=== PATIENT | female | born 1960 | race Caucasian/White ===

== ENCOUNTER 2019-10-01 09:32 | Emergency (ER) | payer MEDICAID ==
[~2019-10-01] VITALS: Ht 165.1 cm; Wt 126.6 kg
[2019-10-01 09:43] VITALS: BP 173/63
[2019-10-01] MEDS ORDERED: cefTRIAXone SOD 1,000 MG VL IM ONE (11:00)
[2019-10-01] MEDS ORDERED: LIDOCAINE 1% HCL (LOCAL ANESTH.) INJ 20ML MDV IJ ONE (11:00)
== END 2019-10-01 11:47 | disposition home or self-care (01) ==
LOC: ER 09:32
DX: H66.91 Otitis media, unspecified, right ear (principal); R42 Dizziness and giddiness
CPT/HCPCS: 70480; 96372; 99284; J0696; J2001

== ENCOUNTER 2019-10-29 15:03 | Inpatient (IN) | payer MEDICAID ==
[~2019-10-29] VITALS: Ht 165.1 cm; Wt 134.2 kg
[2019-10-29] MEDS ORDERED: ONDANSETRON HCL 4 MG/2 ML VIAL IV ONE ×2 (16:00→19:00)
[2019-10-29] MEDS ORDERED: MORPHINE SULFATE 4 MG/ML SYR/VIAL IV ONE (16:00)
[2019-10-29 19:00] LABS: Basophils # (auto) 0.1 10 ^3/uL (0-0.2); Basophils % (auto) 0.6 % (0.0-2.0); Eosinophils # (auto) 0 10 ^3/uL (0-0.8); Eosinophils % (auto) 0.3 % (0.0-7.0); Hematocrit 41.2 % (36.0-46.0); Hemoglobin 13.5 g/dL (12.2-16.2); Lymphocytes # (auto) 1.7 10 ^3/uL (0.4-5.4); Lymphocytes % (auto) 11.3 % (10.0-50.0); Mean Corpuscular Hemoglobin 29.8 pg (28.0-32.0); Mean Corpuscular Hgb Conc. 32.8 g/dL (32.0-36.0); Mean Corpuscular Volume 90.8 fL (80.0-100.0); Monocytes # (auto) 0.6 10 ^3/uL (0-1.3); Monocytes % (auto) 4.1 % (0.0-12.0); Neutrophils # (auto) 12.6 10 ^3/uL (1.6-8.6); Neutrophils % (auto) 83.7 % (37.0-80.0); Platelet Count (auto) 256 10^3/uL (140-450); Red Blood Cells 4.54 10^6/uL (4.0-5.20); Red Cell Distribution Width 15.4 % (11.8-14.3)
[2019-10-29] MEDS ORDERED: HYDROmorphone HCL 2 MG/ML VL IV ONE (19:00)
[2019-10-29 19:17] LABS: Calcium 8.5 mg/dL (8.5-10.1)
[2019-10-29 19:20] LABS: BUN/Creatinine Ratio 14.7
[2019-10-29] MEDS ORDERED: PROMETHAZINE HCL 25 MG/ML 1ML IV ONE (19:45)
[2019-10-29] MEDS ORDERED: MORPHINE SULF INJ 2 MG/ML SYRINGE 1ML IV PRN (19:45)
[2019-10-29] MEDS ORDERED: NITROGLYCERIN 0.4 MG SL TAB SL PRN (19:45)
[2019-10-29] MEDS ORDERED: ONDANSETRON HCL 4 MG/2 ML VIAL IV PRN (19:45)
[2019-10-29] MEDS ORDERED: HYDROcodone-ACET 5/325MG TAB PO PRN (19:45)
[2019-10-29 21:45] VITALS: BP 151/56
[2019-10-29 21:50] VITALS: BP 151/56
[2019-10-29] MEDS ORDERED: ATORVASTATIN 20 MG TAB PO SCH (22:00)
[2019-10-29] MEDS: HYDROmorphone HCL 2 MG/ML VL IV PRN (22:04)
[2019-10-30] MEDS: HYDROmorphone HCL 2 MG/ML VL IV PRN ×7 (02:29→21:57)
--- NOTE | 2019-10-30 04:30 | NUR ---
hospitalist Vishal new orders received continuous garcia catheter for femur fracture and prolonged immobility
[2019-10-30 05:00] VITALS: BP 126/69
--- NOTE | 2019-10-30 05:55 | NUR ---
UA sent to lab
[2019-10-30 06:10] LABS: Urine Amorphous Crystal MOD /hpf (None Seen); Urine Bacteria FEW /hpf (None Seen); Urine Blood Negative /uL (Negative); Urine Hyaline Cast MANY /lpf (0 - 2); Urine Mucus FEW (None Seen); Urine Specific Gravity 1.029 (1.001-1.035); Urine WBC 3 /hpf (0 - 5)
--- NOTE | 2019-10-30 06:50 | NUR ---
pt resting in semi fowlers position. A&Ox4. pt denies pain at her left femur at this time, says she is in a good position. respirations are even and nonlabored on 2L nc. bed in lowest position, call light within reach.
[2019-10-30 09:00] VITALS: BP 99/68
[2019-10-30] MEDS: PANTOPRAZOLE 40 MG TAB PO SCH (09:28)
--- NOTE | 2019-10-30 12:07 | NUR ---
Assessment Pt is a 59 yr old alert and oriented female. Pt lives at home with her daughter, Kavita, who is her emergency contact at [phone]. Prior to admit, pt used no DME and was ambulatory and independent with ADL's. Pt recently moved into the area and is in the process of establishing a Primary Doctor still but declined needing assistance to do so. Pt has no AD and receives family financial support. Pt brought to the hospital after falling and stated that she "Shattered her leg." Pt stated that the doctor is working on transferring her to a higher level of care because they can't do the surgery here. Pt will need medical transportation for the transfer. Pt is understanding and agreeable to the transfer. Pt asked about getting DME upon d/c and SW informed patient that her d/c needs would be assessed by the attending hospital after the procedure is completed. No other needs assessed at this time. Addendum: 10/30/19 at 1214 by JEROMY ZUNIGA Amended: Links added.
[2019-10-30 13:00] VITALS: BP 135/61
[2019-10-30 15:16] LABS: Free T3 2.38 pg/mL (2.3-4.2); Free T4 (Free Thyroxine) 0.68 ng/dL (0.89-1.76)
--- NOTE | 2019-10-30 16:09 | NUR ---
I faxed higher level of care order/clinical information to [facility] and [facility].
--- NOTE | 2019-10-30 16:45 | NUR ---
I called [facility] and spoke with Lelia ([phone])-she provided me with [facility] authorization number [id number] and facility auth number is [id number]. I faxed higher level of care request to [facility] and [facility] ([facility]).
[2019-10-30 17:00] VITALS: BP 129/64
[2019-10-30] MEDS: CALCIUM W/VIT D (600MG/400IU) TAB PO SCH (18:09)
--- NOTE | 2019-10-30 19:20 | NUR ---
Opening Shift Note Assumed care of patient, awake and alert. No S/S of distress/SOB, patient states her pain is a 5/10 at the moment. Patient also states that she does not want to be moved in bed due to the pain. POC discussed and questions answered. Bed is locked in lowest position with side rails up x3 for safety, call light is within reach and patient is encouraged to call assistance PRN, will continue to monitor for changes Q1hr and PRN.
[2019-10-30] MEDS: DOCUSATE SOD 100 MG CAP PO SCH (21:57)
[2019-10-30 22:00] VITALS: BP 109/80
[2019-10-31] MEDS: HYDROmorphone HCL 2 MG/ML VL IV PRN ×7 (01:00→20:19)
--- NOTE | 2019-10-31 02:36 | NUR ---
patient refused being turned in bed
[2019-10-31 05:00] VITALS: BP 104/64
[2019-10-31 05:26] LABS: Basophils # (auto) 0.1 10 ^3/uL (0-0.2); Eosinophils # (auto) 0.1 10 ^3/uL (0-0.8); Eosinophils % (auto) 1.1 % (0.0-7.0); Hematocrit 33.6 % (36.0-46.0); Hemoglobin 11.1 g/dL (12.2-16.2); Lymphocytes # (auto) 2.2 10 ^3/uL (0.4-5.4); Lymphocytes % (auto) 16.8 % (10.0-50.0); Mean Corpuscular Hemoglobin 29.7 pg (28.0-32.0); Mean Corpuscular Hgb Conc. 33.1 g/dL (32.0-36.0); Mean Corpuscular Volume 89.6 fL (80.0-100.0); Monocytes # (auto) 1.1 10 ^3/uL (0-1.3); Neutrophils # (auto) 9.7 10 ^3/uL (1.6-8.6); Neutrophils % (auto) 73.1 % (37.0-80.0); Platelet Count (auto) 265 10^3/uL (140-450); Red Blood Cells 3.74 10^6/uL (4.0-5.20); White Blood Cell 13.3 10^3/uL (4.4-10.8)
[2019-10-31 05:47] LABS: Calcium 8.5 mg/dL (8.5-10.1); Potassium 4.6 mmol/L (3.5-5.1)
[2019-10-31 05:50] LABS: BUN/Creatinine Ratio 20.7
[2019-10-31] MEDS ORDERED: LEVOTHYROXINE SODIUM 25 MCG TAB PO SCH (07:00)
--- NOTE | 2019-10-31 07:15 | NUR ---
Opening Shift Note Assumed care of patient, awake and alert. No S/S of distress/SOB or pain. Instructed on POC and to call for assist PRN, will continue to monitor for changes Q1hr and PRN. Fall precautions in place per safety protocol.
[2019-10-31] MEDS: CALCIUM W/VIT D (600MG/400IU) TAB PO SCH ×2 (08:18→17:44)
[2019-10-31 09:00] VITALS: BP 92/54
[2019-10-31] MEDS ORDERED: SODIUM CHLORIDE 0.9% 1,000 ML IV SCH (09:45)
[2019-10-31] MEDS: DOCUSATE SOD 100 MG CAP PO SCH ×2 (10:32→21:59)
[2019-10-31] MEDS: PANTOPRAZOLE 40 MG TAB PO SCH (10:32)
--- NOTE | 2019-10-31 11:34 | NUR ---
I called the [facility] Transfer Center [phone] and spoke with Ruchi-provided her with contact information for Dr. Brennan and Dr. Sullivan as well as the nurse's station. Re-faxed transfer order/clinical packet to [phone].
--- NOTE | 2019-10-31 11:42 | NUR ---
I called the [facility] Transfer [facility] [phone] and spoke with Tracy, provided her with contact information for Dr. Sullivan and Dr. Brennan as well as the nurse's station. Re-faxed transfer order and clinical packet to [phone].
--- NOTE | 2019-10-31 11:47 | NUR ---
I called [facility] [phone] (spoke with Cynthia) and placed them on will-call pending transfer to higher level of care.
--- NOTE | 2019-10-31 12:03 | NUR ---
I called [facility] Transfer [facility] [phone] and spoke with Vfxelc-ox-gefut transfer order and clinical packet to [phone].
[2019-10-31 13:00] VITALS: BP 135/71
--- NOTE | 2019-10-31 15:22 | NUR ---
I received a call from Dede at the [facility]-letting me know that when they connected their ortho MD with Dr. Brennan, Dr. Brennan said patient was going to go to [place] and for [facility] to not look for a bed for this patient. I called [facility] Transfer Center [phone] and spoke with Hector-he said that they do have an accepting physician-Dr Silvino Vazquez, they are waiting for a bed.
[2019-10-31 15:56] LABS: Urine Bacteria MANY /hpf (None Seen); Urine Blood 1+ /uL (Negative); Urine Hyaline Cast FEW /lpf (0 - 2); Urine Mucus FEW (None Seen); Urine Specific Gravity 1.027 (1.001-1.035); Urine WBC 21 /hpf (0 - 5)
--- NOTE | 2019-10-31 16:26 | NUR ---
Faxed transfer back agreement to [facility] Transfer Center.
[2019-10-31 17:00] VITALS: BP 100/62
--- NOTE | 2019-10-31 17:00 | NUR ---
Patient refusing bed bath at this time.
--- NOTE | 2019-10-31 19:40 | NUR ---
Endorsed care to night RN Ruchi. Patient resting in bed, no distress, sob, or pain noted at this time.
--- NOTE | 2019-10-31 22:00 | NUR ---
[place] TRANSFER [place] SPOKE TO ALICIA AT [facility]. .PATIENT IS GOING TO UNIT 83[address], ROOM 10, BED 2. CALL REPORT TO [phone]. ACCEPTING PHYSICIAN DR. ALVES.
--- NOTE | 2019-10-31 22:23 | NUR ---
NOHEMI SPOKE TO JANNA AT [facility]. ETA OF 2 HOURS OR MORE GIVEN FOR BLS TRANSPORT. PATIENT GOING TO [facility].
[2019-10-31 22:24] VITALS: BP 111/67
--- NOTE | 2019-10-31 22:27 | NUR ---
FAMILY NOTIFIED OF TRANSFER PATIENT'S DAUGHTER JOE ([phone]) NOTIFIED OF PATIENT'S TRANSFER PER PATIENT'S REQUEST. UPDATED JOE WITH UNIT AND ROOM INFORMATION. ALL QUESTIONS AND CONCERNS ADDRESSED.
--- NOTE | 2019-10-31 23:22 | NUR ---
REPORT WAS GIVEN TO THE ACCEPTING NURSE FROM [place] AND WILL BE TRANSPORTED THERE BY [facility] ADMINISTRATOR OF HOME HEALTH
--- NOTE | 2019-11-01 00:09 | NUR ---
REPORT GIVEN TO Jasvir Valdez AT [facility]
[2019-11-01] MEDS: HYDROmorphone HCL 2 MG/ML VL IV PRN ×2 (00:21→00:24)
--- NOTE | 2019-11-01 02:02 | NUR ---
PT left at 135 am picked up by manager systems for [facility] in no distress and vitals are stable
== END 2019-11-01 01:35 | disposition short-term general hospital (02) | DRG 342 ==
LOC: EDBD 15:03 → ER 15:03 → OVERFLOW 15:04 → EAST 22:14
PROVIDERS: ADMIT Nurse Practitioner Acute Care; ATTEND Internal Medicine
DX: S82.042A Displaced comminuted fracture of left patella, initial encounter for closed fracture (principal); N17.0 Acute kidney failure with tubular necrosis; N18.3 Chronic kidney disease, stage 3 (moderate); E66.01 Morbid (severe) obesity due to excess calories; D72.829 Elevated white blood cell count, unspecified; E03.9 Hypothyroidism, unspecified; W18.39XA Other fall on same level, initial encounter; E78.5 Hyperlipidemia, unspecified; F17.210 Nicotine dependence, cigarettes, uncomplicated; Z90.49 Acquired absence of other specified parts of digestive tract; Z68.39 Body mass index [BMI] 39.0-39.9, adult; Z91.81 History of falling; Z98.51 Tubal ligation status; Y93.89 Activity, other specified; Y92.89 Other specified places as the place of occurrence of the external cause; Y99.8 Other external cause status
CPT/HCPCS: 36415; 71045; 73560; 73700; 80048; 80061; 81001; 84439; 84443; 84481; 85025; 87086; 87088; 87186; 96361; 96374; 96375; G0378; J2405

== ENCOUNTER 2024-09-09 22:53 | Inpatient (IN) | payer MEDICARE, MEDICAID ==
[~2024-09-09] VITALS: Ht 162.6 cm; Wt 87.8 kg
[2024-09-09] MEDS: SODIUM CHLORIDE 0.9% 1,000 ML IV ONE (23:15)
[2024-09-09] MEDS ORDERED: VANCOMYCIN HCL 1000 MG VL IV ONE (23:15)
[2024-09-09] MEDS ORDERED: levoFLOXacin 500 MG/100 ML PREMIX BAG IV ONE (23:15)
[2024-09-09 23:20] VITALS: PULSE 151; RESP 26; O2SAT 100
[2024-09-09 23:39] LABS: Base Excess -5.5 mmol/L (-2.0-3.0)
[2024-09-09] MEDS: ACETAMINOPHEN 325 MG TAB PO ONE (23:39)
[2024-09-09] MEDS: SODIUM CHLORIDE 0.9% 3,000 ML IVB ONE (23:48)
--- NOTE | 2024-09-09 23:59 | ED.PDOC ---
History of Present Illness HPI Comments 64 y/o F, with known reported history of uterine CA, HLD, hypothyroidism, and tobacco use, is BIBA for c/o ALOC, today. Per EMS report, patient's family called at 2202 after noticing the patient getting more progressively altered characterized by confusion following last time being reported normal at around 1700, this evening. Family commented on scene on patient c/o dizziness, nausea, bowel incontinence and urine retention, lately, prior to this evening's events and was found by EMS staff with a temperature of 100.5F, tachycardic, hypotensive, and a GCS of 13 and oriented to person only. All remaining vitals were noted to have been stable and within normal limits. En route, patient was placed in restraints to prevent her, accidentally, falling off, due to excessive movements, and given IV fluids following IV access placement. Upon arrival to ED, patient had a temperature of 101.3F, pulse rate of 152, respiratory rate of 30, blood pressure of 75/64, and a SpO2 of 88%RA and no additional reported associated symptoms. Further history cannot be obtained, due to patient's current condition and absence of family/veneer sander historians, at time of initial assessment. Chief Complaint: ALOC Time Seen by MD: 23:00 Primary Care Provider: NONE Reviewed Notes: Nurses Notes, Electrotherapist Notes, Medications, Allergies Allergies: Coded Allergies: NO KNOWN ALLERGIES (Unverified , 10/01/19) Home Meds Unable to Obtain Active Prescriptions or Reported Meds Information Source: Emergency Med Personnel Mode of Arrival: EMS Severity: Moderate Timing: Hours Duration: Since onset Prehospital treatment: 12 Lead EKG, Accucheck, Appliance Technician Review of Systems: Unable to obtain ROS, due to patient being altered and not answering questions appropriately Vital Signs Vital Signs Date Time Temp Pulse Resp B/P (MAP) Pulse Ox O2 Delivery O2 Flow Rate FiO2 09/10/24 04:21 70/23 09/10/24 04:18 122 09/10/24 04:00 14 100 09/10/24 03:00 104.0 104.0 09/09/24 23:20 Nasal Cannula* 5 40 Physical Exam General: Awake, alert and oriented. No acute distress. Skin: Skin in warm, dry and intact. Appropriate color for ethnicity. Nailbeds pink with no cyanosis. HEENT: The head is normocephalic and atraumatic. Conjunctivae are clear without exudates or hemorrhage. Sclera is non-icteric. EOM are intact. No signs of nystagmus. Eyelids are normal in appearance without swelling or lesions. Oral mucosa is pink and moist Neck: The neck is supple with normal range of motion. No JVD. Cardiac: Heart rate and rhythm are normal. No murmurs, gallops, or rubs are auscultated. Respiratory: No signs of respiratory distress. Lung sounds are clear in all lobes bilaterally without rales, ronchi, or wheezes. Abdominal: Abdomen is soft, non-tender without distention. Bowel sounds are present and normoactive in all four quadrants. Extremities: Upper and lower extremities are atraumatic in appearance without deformity or edema. Neurological: The patient is awake, alert and oriented to person only, but is confused and is only able to say her name. She follows commands. There is no facial asymmetry. Psychiatric: Appropriate mood and affect. Good judgement and insight. No visual or auditory hallucinations. Past Medical History PAST MEDICAL HISTORY: Cancer (uterine CA ), High Lipids, Thyroid (hypothyroidism ) Surgical History: BTL, Cholecystectomy, Tubal Ligation Surgical History (Other): Esophageal surgery) FOOD PROCESSOR History: No Pertinent FOOD PROCESSOR History Family History Family History: Reviewed,noncontributory to illness Social History Smoker: Cigarettes Alcohol: Denies ETOH Use Drugs: Denies Drug Use Lives In: Home Was a procedure done? Was a procedure done?: Yes Sedation Sedation?: No Other Procedure Procedure Peripheral left external jugular line placed under ultrasound-guided device ass istance 20 gauge angiocatheter placed Indication hypotension Anesthetic N/A Prep standard room and garment sterile preparation set Success procedure was successful, with patient tolerating it without complications Informed consent obtained: No Risks, benefits, and alternati: No Notes Initially, I wanted to attempt a central line in lieu or peripheral line but was unable to, due to patient being restless and continually moving. EKG EKG : Pulse Rate (adult): 144 [place]: Normal Cardiac Rhythm: ST Block: None Hypertrophy: None ST: Normal Comments low voltage Differential Dx Considerations may include: sepsis, UTI, encephalopathy, dehydration, electrolyte imbalance, viral syndrome, URI X-Ray, Labs, Meds, VS Vital Signs Date Time Temp Pulse Resp B/P (MAP) Pulse Ox O2 Delivery O2 Flow Rate FiO2 09/10/24 04:21 70/23 09/10/24 04:18 122 09/10/24 04:00 128 14 87/36 (53) 100 09/10/24 03:00 104.0 144 14 92/43 (59) 100 104.0 09/10/24 02:00 142 18 108/37 (60) 98 09/10/24 01:00 146 16 83/44 (57) 100 09/10/24 00:39 101.0 09/10/24 00:00 142 16 86/47 (60) 100 09/10/24 00:00 142 09/09/24 23:59 144 09/09/24 23:39 101.3 09/09/24 23:20 151 26 100 Nasal Cannula* 5 40 09/09/24 23:20 101.3 151 26 88/52 (64) 100 101.3 09/09/24 23:07 144 09/09/24 22:59 101.3 152 30 75/64 (68) 88 Lab Test 09/10/24 03:47 09/10/24 03:10 09/10/24 01:52 09/10/24 00:44 Range/Units Influenza Type A Antigen Negative Negative Influenza Type B Antigen Negative Negative SARS-CoV-2 Antigen (Rapid) Negative NEGATIVE Lactic Acid Level 7.5 *H 7.3 *H 0.4-2.0 mmol/L Ammonia < 10 L 11-32 umol/L Urine Color Light-yellow Yellow Urine Clarity Turbid H Clear Urine pH 5.5 5.0-9.0 Urine Specific [place] 1.011 1.001-1.035 Urine Protein 1+ H Negative Urine Ketones Trace Negative Urine Blood Negative Negative /uL Urine Nitrite Negative Negative Urine Bilirubin Negative Negative Urine Urobilinogen Normal Negative mg/dL Urine Leukocyte Esterase Negative Negative /uL Urine RBC 2 0 - 4 /hpf Urine WBC 5 0 - 5 /hpf Urine Squamous Epithelial Cells Few <5 /hpf Urine Amorphous Crystals Few None Seen /hpf Urine Bacteria Few H None Seen /hpf Urine Hyaline Casts Mod 0 - 2 /lpf Urine Mucus Few None Seen Urine Glucose Normal Normal mg/dL Urine Opiates Screen Neg NEGATIVE Urine Fentanyl Screen Neg NEGATIVE Urine Barbiturates Screen Neg NEGATIVE Urine Phencyclidine Screen Neg NEGATIVE Urine Amphetamines Screen Neg NEGATIVE Urine Benzodiazepines Screen Neg NEGATIVE Urine Cocaine Screen Neg NEGATIVE Urine Cannabinoids Screen Neg NEGATIVE White Blood Count 9.1 4.4-10.8 10^3/uL Red Blood Count 3.98 L 4.0-5.20 10^6/uL Hemoglobin 9.7 L 12.2-16.2 g/dL Hematocrit 32.4 L 36.0-46.0 % Mean Corpuscular Volume 81.6 80.0-100.0 fL Mean Corpuscular Hemoglobin 24.4 L 28.0-32.0 pg Mean Corpuscular Hemoglobin Concent 29.9 L 32.0-36.0 g/dL Red Cell Distribution Width 19.7 H 11.8-14.3 % Platelet Count 194 140-450 10^3/uL Mean Platelet Volume 7.8 6.9-10.8 fL Neutrophils (%) (Auto) 37.0-80.0 % Lymphocytes (%) (Auto) 10.0-50.0 % Monocytes (%) (Auto) 0.0-12.0 % Basophils (%) (Auto) 0.0-2.0 % Neutrophils # (Auto) 1.6-8.6 10 ^3/uL Lymphocytes # (Auto) 0.4-5.4 10 ^3/uL Monocytes # (Auto) 0-1.3 10 ^3/uL Differential Total Cells Counted 100.0 100 Neutrophils % (Manual) 82 H 37.0-80.0 Band Neutrophils % (Manual) 10 Lymphocytes % (Manual) 2 L 10.0-50.0 Monocytes % (Manual) 3 0-12 Eosinophils % (Manual) 0 0-7 Basophils % (Manual) 0 0.0-2.0 Metamyelocytes % (manual) 1 Myelocytes % (Manual) 2 Promyelocytes % (Manual) 0 Blast Cells % (Manual) 0 Nucleated Red Blood Cells 1.0 % Reactive Lymphocytes 0 Platelet Estimate Adequate Hypochromasia (manual) Slight Anisocytosis (manual) Slight Sodium Level 143 136-145 mmol/L Potassium Level 3.3 L 3.5-5.1 mmol/L Chloride Level 112 H 98-107 mmol/L Carbon Dioxide Level 17 L 20-31 mmol/L Anion Gap 14 5-15 Blood Urea Nitrogen 10 9-23 mg/dL Creatinine 1.56 H 0.550-1.02 mg/dL Glomerular Filtration Rate Calc 36 >90 mL/min BUN/Creatinine Ratio 6.4 L 10.0-20.0 Serum Glucose 111 H 74-106 mg/dL Calcium Level 7.9 L 8.7-10.4 mg/dL Magnesium Level 1.4 L 1.6-2.6 mg/dL Total Bilirubin 0.5 0.2-1.0 mg/dL Aspartate Amino Transferase (AST) 34 13-40 U/L Alanine Aminotransferase (ALT) 10 7-40 U/L Alkaline Phosphatase 89 46-116 U/L Troponin I High Sensitivity 29 </=34 ng/L Total Protein 5.5 L 5.7-8.2 g/dL Albumin 2.7 L 3.2-4.8 g/dL Plasma/Serum Blood Alcohol < 3.0 <10 mg/dL Test 09/09/24 23:34 Range/Units Blood Gas Specimen Type Arterial Blood Gas Sample Site Right radial Blood Gas Patient Temperature 37.0 Arterial Blood Date Drawn Arterial Blood pH 7.525 H 7.350-7.450 Arterial Blood Partial Pressure CO2 18.9 *L 32.0-45.0 mmHg Arterial Blood Partial Pressure O2 148.0 H 83.0-108.0 mmHg Arterial Blood HCO3 15.3 L 21.0-28.0 mmol/L Arterial Blood Oxygen Saturation 98.8 H 94.0-98.0 % Arterial Blood Base Excess -5.5 L -2.0-3.0 mmol/L Arterial Blood Oxyhemoglobin 97.8 94.0-98.0 % Arterial Blood Carboxyhemoglobin 0.3 L 0.5-1.5 % Arterial Blood Methemoglobin 0.7 0.0-1.5 % [place]aine Test Yes Blood Gas Total Hemoglobin 11.20 L 12.0-16.0 g/dL Blood Gas Modality Nasal cannula FiO2 % 32.0 Blood Gas Critical Value Read Back Yes Blood Gas Notified Whom Gaviota erwin md Blood Gas Notified Time [id number] Blood Gas Notified By Tal ventura Current Medications Medications (Trade) Dose Ordered Sig/Lou Route Start Time Stop Time Status Last Admin Acetaminophen (Tylenol Tablet) 650 mg ONCE ONCE PO 09/09/24 23:15 09/09/24 23:22 DC 09/09/24 23:39 Sodium Chloride 3,000 ml @ 1,000 mls/hr Q3H ONCE IVB 09/09/24 23:15 09/10/24 02:14 DC 09/09/24 23:48 Sodium Chloride 1,000 ml @ 130 mls/hr Q7H42M ONCE IV 09/09/24 23:15 09/10/24 06:56 09/09/24 23:15 Levofloxacin/ Dextrose 150 ml @ 100 mls/hr ONCE ONCE IV 09/10/24 00:00 09/10/24 01:29 DC 09/10/24 00:04 Vancomycin HCl 250 ml @ 250 mls/hr ONCE ONCE IV 09/10/24 01:45 09/10/24 02:44 DC 09/10/24 02:15 Midazolam HCl (Versed Injection) 2 mg ONCE ONCE IV 09/10/24 02:15 09/10/24 02:16 DC 09/10/24 02:23 Ondansetron HCl (Zofran) 4 mg ONCE ONCE IV 09/10/24 02:45 09/10/24 02:46 DC 09/10/24 02:42 Acetaminophen (Ofirmev) 1,000 mg [id number] PRN IV 09/10/24 03:30 09/10/24 03:31 DC 09/10/24 03:32 Norepinephrine Bitartrate 250 ml @ 3.75 mls/hr Q24H IV 09/10/24 04:15 09/10/24 04:21 Ketorolac Tromethamine (Toradol Injection) 30 mg ONCE ONCE IV 09/10/24 04:15 09/10/24 04:16 DC 09/10/24 04:37 Sodium Chloride 1,000 ml @ 1,000 mls/hr Q1H ONCE IV 09/10/24 05:30 09/10/24 06:29 09/10/24 05:30 Lorazepam (Ativan Inj) 1 mg ONCE ONCE IV 09/10/24 06:00 09/10/24 06:02 DC 09/10/24 06:10 [place] [id number] Ph: [phone] DIAGNOSTIC IMAGING Diagnostic Imaging Report : [id number] Signed PATIENT: JOSLYN ARMSTRONG ACCT: [id number] UNIT: [id number] : 1960 LOC: ER ROOM / BED: / AGE / SEX: 64 / F ADM STATUS: REG ER SERVICE 7 ORDERING PHYSICIAN: MILTON ERWIN MD PROCEDURE(s): HWOCT - HEAD WITHOUT CONTRAST REASON: ams ORDER NUMBER(s): [id number], ACCESSION NUMBER(s): [id number] Examination: HWOCT CLINICAL INDICATION: ams COMPARISON: None. CONTRAST USED: Intravenous. TECHNIQUE: The examination was performed obtaining 5 mm slices without contrast. Multiplanar reconstructions were obtained. CT scan done according to ALARA (As Low As Reasonably Achievable). FINDINGS: SUPRATENTORIAL BRAIN: Motion artefacts are seen compromising image quality limiting evaluation. Cerebral Hemispheres: There is no midline shift or mass effect, intra or extra- axial fluid collections or hemorrhage. Periventricular White Matter/Basal Ganglia: No abnormal areas of altered attenuation within the periventricular white matter or basal ganglia. POSTERIOR FOSSA: The brainstem is normal and the visualized cerebellar hemispheres are unremarkable. VENTRICULAR SYSTEM: Generalized prominence of the ventricular system, cisterns, sulcal spaces and cerebellar foliae is seen, suggestive of age-related cortico- cerebral and cerebellar atrophy. There is no evidence of hydrocephalus or transependymal flow of cerebrospinal fluid. SKULL BASE AND PARASELLAR REGION: The skull base is normal with no parasellar masses or abnormalities identified. CALVARIUM AND SCALP REGION: No abnormality is seen. PARANASAL SINUSES: No significant inflammatory changes are identified in the paranasal sinuses. IMPRESSION: 1. Mild age-related cortico-cerebral and cerebellar atrophy. 2. No acute infarct or space occupying lesion is seen. 3. No intracranial hemorrhage or calvarial fracture. 4. Suggest MRI brain correlation if clinically deemed necessary. Electronically Signed 09/10/2024 03:37 Leonel Tran ATED BY: MARC HERNADEZ MD DICTATED DATE/TIME: 09/10/24336 SIGNED BY: MARC HERNADEZ MD SIGNED DATE/TIME: 09/10/24336 CC: [place] [address] Ph: [phone] DIAGNOSTIC IMAGING Diagnostic Imaging Report : [id number] Signed PATIENT: JOSLYN ARMSTRONG ACCT: [id number] UNIT: [id number] : 1960 LOC: ER ROOM / BED: / AGE / SEX: 64 / F ADM STATUS: REG ER SERVICE 0248 ORDERING PHYSICIAN: MILTON ERWIN MD PROCEDURE(s): CTCAP - CHST AB PEL WO CON-NO IV/ORAL REASON: Sepsis ORDER NUMBER(s): [id number], ACCESSION NUMBER(s): [id number] Examination: CTCAP CLINICAL INDICATION: Sepsis. COMPARISON: None. CONTRAST USED: None. TECHNIQUE: A plain CT study of the chest abdomen and pelvis is performed after administration of intravenous contrast medium. The examination was performed with 5 mm thin slices. Multiplanar reconstructions were obtained. CT scan done according to ALARA (As Low As Reasonably Achievable). FINDINGS: Lower neck and thyroid: Unremarkable Lungs and pleura: The pulmonary parenchyma does not show any significant abnormality. No pulmonary nodules are detected. Mediastinum and great vessels: The trachea and the mainstem bronchi are normal. No significant mediastinal lymphadenopathy is detected. The mediastinal vasculature appears normal. Pleural spaces are clear. Heart is normal in size. No pericardial effusion. Small sliding hiatus hernia is seen. Chest wall and Axillae: Unremarkable. CT ABDOMEN: Liver: The liver is normal in size. Small calcified granuloma is seen in segment of liver. The portal venous radicles are normal. There is no intrahepatic biliary radicle dilatation. Gallbladder: The gallbladder is not visualized (post operative status). Common bile duct stent is seen in place. No pneumobilia. Pancreas: The pancreas is normal in size and shape. No focal lesion is seen within. The peripancreatic fat-planes are normal. Spleen: The spleen is normal in size and does not show any focal abnormality. Retroperitoneum: Both adrenal glands are normal in size and morphology. There is no significant retroperitoneal lymphadenopathy. The kidneys are normal in size with no hydronephrosis. Non-obstructive calculus measuring 2 mm is seen in the upper pole of right kidney. Probable prominent left renal pelvis. Parapelvic cyst is seen. Suggest CT urography correlation. Vessels: Aorta, IVC and the mesenteric vessels appear normal. Stomach and bowel: The bowel loops are unremarkable. There is no ascites. Skeletal system: Degenerative changes are seen involving the spine in the form of marginal osteophytes. Grade I anterolisthesis of L3 on L4 vertebra is seen. CT PELVIS: Appendix: The appendix is unremarkable in appearance. Colon: The ascending, transverse, descending, sigmoid colon and rectum are unremarkable. Bladder: The urinary bladder is empty with Foleys catheter seen in the lumen. Uterus and ovaries: Post-hysterectomy status. No adnexal pathology. No abnormal fluid collection is seen. No pelvic lymphadenopathy is identified. IMPRESSION: 1. The pulmonary parenchyma does not show any significant abnormality. 2. Non-obstructive calculus measuring 2 mm is seen in the upper pole of right kidney. 3. Probable prominent left renal pelvis. Parapelvic cyst is seen. Suggest CT urography correlation. 4. No abdominal mass or adenopathy 5. No ascites. 6. No free air or inflammatory changes. 7. Additional chronic and/or ancillary findings as detailed above. 8. Suggest clinical correlation and follow-up as clinically deemed necessary. Electronically Signed 09/10/2024 04:10 Leonel Tran ATED BY: MARC HERNADEZ MD DICTATED DATE/TIME: 09/10/24409 SIGNED BY: MARC HERNADEZ MD SIGNED DATE/TIME: 09/10/24409 CC: [place] [address] Ph: [phone] DIAGNOSTIC IMAGING Diagnostic Imaging Report : [id number] Signed PATIENT: JOSLYN ARMSTRONG ACCT: [id number] UNIT: [id number] : 1960 LOC: ER ROOM / BED: / AGE / SEX: 64 / F ADM STATUS: REG ER SERVICE 7 ORDERING PHYSICIAN: MILTON ERWIN MD PROCEDURE(s): CXR1 - CHEST XRAY 1 VIEW REASON: septic ORDER NUMBER(s): [id number], ACCESSION NUMBER(s): [id number] Examination: CXR1 Clinical Indication: septic Comparison: None. Technique: Frontal radiograph of the chest was obtained. Findings: Limited evaluation, as the patient is in rotation and due to patients body habitus. Inhomogeneous radiopacities in right mid and both lower lungs, suggestive of patchy consolidations. Blunting of the bilateral costophrenic angles, suggestive of bilateral pleural effusions. There is no pneumothorax. Mild cardiomegaly. Ectatic thoracic aorta. Mild superior mediastinal widening. No acute osseous abnormality is seen. Impression: 1. Limited evaluation, as the patient is in rotation and due to patients body habitus. 2. Patchy consolidations in the right mid and both lower lungs. 3. Bilateral pleural effusions. Mild cardiomegaly. 4. Mild superior mediastinal widening. Advised further evaluation with CT chest without contrast. Electronically Signed 09/10/2024 03:37 Leonel Tran ATED BY: MARC HERNADEZ MD DICTATED DATE/TIME: 09/10/24336 SIGNED BY: MARC HERNADEZ MD SIGNED DATE/TIME: 09/10/24336 CC: Time of 1ST Reevaluation: 23:30 Reevaluation 1ST: Unchanged Patient Education/Counseling: Other (patient is altered ) Family Education/Counseling: No Family Present Departure 1 Departure Time of Disposition: 05:20 Impression: Primary Impression: Altered mental status Additional Impressions: Sepsis Metabolic encephalopathy Acute renal failure Hypovolemic shock e-Prescriptions Unable to Obtain Active Prescriptions or Reported Meds Comments 64 year old female presented with one day of AMS. Per family at bedside patient has been eating less over the past week. In the ED patient found to have possible pneumonia/ acute renal failure. She is awake and alert however continues to be significantly confused. IVF, antibiotics and pressors initiated. Patient admitted for further treatment, observation and evaluation. Extensive evaluation was performed in attempt to identify or rule out: (See differential diagnosis section) The following tests were ordered, and results were reviewed by me: (See diagnostic results section) The following test were independently interpreted by me: N/A I reviewed and agreed with the following test results read by other providers: N/A I reviewed the following notes from the pt's past medical encounters: (None available at this time) Additional information was gathered from interviewing the following independent historians: N/A Discussion of management or test interpretation with external physician/other qualified health hemodialysis patient care specialist: N/A Addressed [ ]one or more chronic illnesses with severe exacerbation, progression, or side effects of treatment: [ ]an acute or chronic illness that poses a threat to life or bodily function: [ ] Decision regarding hospitalization or escalation of hospital level of care: Risk and benefits of admission for further treatment of patient's condition was considered. Due to patient's current clinical condition, high risk of decline and poor outcome if discharged and need for further inpatient management and monitoring, patient will be admitted to the hospital. Drug therapy requiring intensive monitoring for toxicity: N/A Parenteral controlled substances: N/A Decision regarding elective major surgery with identified patient or procedure risk factors: N/A Decision regarding emergency major surgery: N/A Decision not to resuscitate or to de-escalate care because of poor prognosis: N/A Diagnosis or treatment significantly limited by social determinants of health: N/A Decision regarding hospitalization or escalation of hospital level of care: Risks and benefits of admission for further treatment of patient's condition was considered however due to patient's stable condition patient will be discharged to follow up closely or return to care for worsening of condition or inability to follow up. Critical Care Note Critical Care Time?: No Stability Stability form required: No Heart Score Heart Score: Heart Score Response (Comments) Value History N/A 0 EKG N/A 0 Age N/A 0 Risk Factors N/A 0 Troponin N/A 0 Total 0 I personally scribed for MILTON ERWIN MD ([email or web address]) on 09/09/24 at 23:59. Electronically submitted by Kev Alvarez ([email or web address]). I personally scribed for MILTON ERWIN MD ([email or web address]) on 09/10/24 at 05:32. Electronically submitted by Kev Alvarez ([email or web address]). I personally scribed for MILTON ERWIN MD ([email or web address]) on 09/10/24 at 05:37. Electronically submitted by Kev Alvarez ([email or web address]). MILTON ERWIN MD Sep 09, 2024 23:59
[2024-09-10] VITALS (17 sets, daily range): BP systolic 82–115; BP diastolic 40–57; PULSE 94–113; RESP 18–23; TEMP 97; O2SAT 0–100
[2024-09-10] MEDS ORDERED: VANCOMYCIN PER PHARMACY 0 MG IV SCH
[2024-09-10] MEDS: levoFLOXacin 750MG 150 ML IV ONE (00:04)
[2024-09-10 01:05] LABS: Hematocrit 32.4 % (36.0-46.0); Hemoglobin 9.7 g/dL (12.2-16.2); Platelet Count (auto) 194 10^3/uL (140-450); White Blood Cell 9.1 10^3/uL (4.4-10.8)
[2024-09-10 01:07] LABS: Mean Corpuscular Hemoglobin 24.4 pg (28.0-32.0); Mean Corpuscular Hgb Conc. 29.9 g/dL (32.0-36.0); Mean Corpuscular Volume 81.6 fL (80.0-100.0); Red Blood Cells 3.98 10^6/uL (4.0-5.20); Red Cell Distribution Width 19.7 % (11.8-14.3)
[2024-09-10 01:08] LABS: Basophils % (manual) 0 (0.0-2.0); Blast Cells 0; Eosinophils % (manual) 0 (0-7); Promyelocytes % 0; Reactive Lymphocytes 0
[2024-09-10 01:18] LABS: Alanine Aminotransferase 10 U/L (7-40); Alkaline Phosphatase 89 U/L (46-116); Anion Gap 14 (5-15); Aspartate Aminotransferase 34 U/L (13-40); BUN/Creatinine Ratio 6.4 (10.0-20.0); Blood Urea Nitrogen 10 mg/dL (9-23); Sodium 143 mmol/L (136-145)
[2024-09-10 01:19] LABS: Albumin 2.7 g/dL (3.2-4.8); Bilirubin, Total 0.5 mg/dL (0.2-1.0); Calcium 7.9 mg/dL (8.7-10.4); Carbon Dioxide 17 mmol/L (20-31); Chloride 112 mmol/L (98-107); Glucose 111 mg/dL (74-106); Magnesium 1.4 mg/dL (1.6-2.6); Potassium 3.3 mmol/L (3.5-5.1); Total Protein 5.5 g/dL (5.7-8.2)
[2024-09-10 01:22] LABS: Lactic Acid w/Reflex 7.3 mmol/L (0.4-2.0)
[2024-09-10 01:26] LABS: Anisocytosis Slight; Band Neutrophils % (manual) 10; Hypochromia Slight; Lymphocytes % (manual) 2 (10.0-50.0); Metamyelocytes % 1; Monocytes % (manual) 3 (0-12); Myelocytes % 2; Platelet Estimate Adequate
[2024-09-10 01:47] LABS: Blood Alcohol < 3.0 mg/dL (<10)
[2024-09-10] MEDS: VANCOMYCIN 1GM/250ML KIT 250 ML IV ONE (02:15)
[2024-09-10] MEDS: MIDAZOLAM HCL 2MG/2ML 2ml VIAL (1mg/ml) IV ONE (02:23)
[2024-09-10 02:25] LABS: Opiate Scree,Urine Neg (NEGATIVE)
[2024-09-10] MEDS: POTASSIUM CHL 20MEQ/100ML 100 ML IV ONE (02:30)
[2024-09-10 02:41] LABS: Urine Amorphous Crystal FEW /hpf (None Seen); Urine Bacteria FEW /hpf (None Seen); Urine Blood Negative /uL (Negative); Urine Clarity Turbid (Clear); Urine Color Light-Yellow (Yellow); Urine Hyaline Cast MOD /lpf (0 - 2); Urine Mucus FEW (None Seen); Urine Protein, UAD 1+ (Negative); Urine Specific Gravity 1.011 (1.001-1.035); Urine Squamous Epithelial Cell FEW /hpf (<5); Urine Urobilinogen Normal (Negative); Urine WBC 5 /hpf (0 - 5); Urine pH 5.5 (5.0-9.0)
[2024-09-10] MEDS: ONDANSETRON HCL 4 MG/2 ML VIAL IV ONE (02:42)
[2024-09-10 02:45] LABS: Amphetamine Screen, Urine Neg (NEGATIVE); Barbiturate Scree,Urine Neg (NEGATIVE); Benzodiazephine Screen, Urine Neg (NEGATIVE); Cannabinoid Screen, Urine Neg (NEGATIVE); Cocaine Screen, Urine Neg (NEGATIVE); Phencyclidine Screen, Urine Neg (NEGATIVE)
[2024-09-10] MEDS: ACETAMINOPHEN IV 1000 MG/100ML (10MG/ML) IV PRN (03:32)
--- NOTE | 2024-09-10 03:37 | DVH ---
Examination: CXR1 Clinical Indication: septic Comparison: None. Technique: Frontal radiograph of the chest was obtained. Findings: Limited evaluation, as the patient is in rotation and due to patients body habitus. Inhomogeneous radiopacities in right mid and both lower lungs, suggestive of patchy consolidations. Blunting of the bilateral costophrenic angles, suggestive of bilateral pleural effusions. There is no pneumothorax. Mild cardiomegaly. Ectatic thoracic aorta. Mild superior mediastinal widening. No acute osseous abnormality is seen. Impression: 1. Limited evaluation, as the patient is in rotation and due to patients body habitus. 2. Patchy consolidations in the right mid and both lower lungs. 3. Bilateral pleural effusions. Mild cardiomegaly. 4. Mild superior mediastinal widening. Advised further evaluation with CT chest without contrast. Electronically Signed 09/10/2024 03:37 Leonel Tran
--- NOTE | 2024-09-10 03:38 | DVH ---
Examination: HWOCT CLINICAL INDICATION: ams COMPARISON: None. CONTRAST USED: Intravenous. TECHNIQUE: The examination was performed obtaining 5 mm slices without contrast. Multiplanar recons tructions were obtained. CT scan done according to ALARA (As Low As Reasonably Achievable). FINDINGS: SUPRATENTORIAL BRAIN: Motion artefacts are seen compromising image quality limiting evaluation. Cerebral Hemispheres: There is no midline shift or mass effect, intra or extra-axial fluid collectio ns or hemorrhage. Periventricular White Matter/Basal Ganglia: No abnormal areas of altered attenuation within the nadia ventricular white matter or basal ganglia. POSTERIOR FOSSA: The brainstem is normal and the visualized cerebellar hemispheres are unremarkable. VENTRICULAR SYSTEM: Generalized prominence of the ventricular system, cisterns, sulcal spaces and ce rebellar foliae is seen, suggestive of age-related cortico-cerebral and cerebellar atrophy. There is no evidence of hydrocephalus or transependymal flow of cerebrospinal fluid. SKULL BASE AND PARASELLAR REGION: The skull base is normal with no parasellar masses or abnormalitie s identified. CALVARIUM AND SCALP REGION: No abnormality is seen. PARANASAL SINUSES: No significant inflammatory changes are identified in the paranasal sinuses. IMPRESSION: 1. Mild age-related cortico-cerebral and cerebellar atrophy. 2. No acute infarct or space occupying lesion is seen. 3. No intracranial hemorrhage or calvarial fracture. 4. Suggest MRI brain correlation if clinically deemed necessary. Electronically Signed 09/10/2024 03:37 Leonel Tran
--- NOTE | 2024-09-10 04:10 | DVH ---
Examination: CTCAP CLINICAL INDICATION: Sepsis. COMPARISON: None. CONTRAST USED: None. TECHNIQUE: A plain CT study of the chest abdomen and pelvis is performed after administration of int ravenous contrast medium. The examination was performed with 5 mm thin slices. Multiplanar reconstru ctions were obtained. CT scan done according to ALARA (As Low As Reasonably Achievable). FINDINGS: Lower neck and thyroid: Unremarkable Lungs and pleura: The pulmonary parenchyma does not show any significant abnormality. No pulmonary nodules are detected. Mediastinum and great vessels: The trachea and the mainstem bronchi are normal. No significant media stinal lymphadenopathy is detected. The mediastinal vasculature appears normal. Pleural spaces are cl ear. Heart is normal in size. No pericardial effusion. Small sliding hiatus hernia is seen. Chest wall and Axillae: Unremarkable. CT ABDOMEN: Liver: The liver is normal in size. Small calcified granuloma is seen in segment of liver. The portal venous radicles are normal. There is no intrahepatic biliary radicle dilatation. Gallbladder: The gallbladder is not visualized (post operative status). Common bile duct stent is se en in place. No pneumobilia. Pancreas: The pancreas is normal in size and shape. No focal lesion is seen within. The peripancre atic fat-planes are normal. Spleen: The spleen is normal in size and does not show any focal abnormality. Retroperitoneum: Both adrenal glands are normal in size and morphology. There is no significant retr operitoneal lymphadenopathy. The kidneys are normal in size with no hydronephrosis. Non-obstructive c alculus measuring 2 mm is seen in the upper pole of right kidney. Probable prominent left renal pelvi s. Parapelvic cyst is seen. Suggest CT urography correlation. Vessels: Aorta, IVC and the mesenteric vessels appear normal. Stomach and bowel: The bowel loops are unremarkable. There is no ascites. Skeletal system: Degenerative changes are seen involving the spine in the form of marginal osteophyt es. Grade I anterolisthesis of L3 on L4 vertebra is seen. CT PELVIS: Appendix: The appendix is unremarkable in appearance. Colon: The ascending, transverse, descending, sigmoid colon and rectum are unremarkable. Bladder: The urinary bladder is empty with Foleys catheter seen in the lumen. Uterus and ovaries: Post-hysterectomy status. No adnexal pathology. No abnormal fluid collection is s een. No pelvic lymphadenopathy is identified. IMPRESSION: 1. The pulmonary parenchyma does not show any significant abnormality. 2. Non-obstructive calculus measuring 2 mm is seen in the upper pole of right kidney. 3. Probable prominent left renal pelvis. Parapelvic cyst is seen. Suggest CT urography correlation. 4. No abdominal mass or adenopathy 5. No ascites. 6. No free air or inflammatory changes. 7. Additional chronic and/or ancillary findings as detailed above. 8. Suggest clinical correlation and follow-up as clinically deemed necessary. Electronically Signed 09/10/2024 04:10 Leonel Tran
[2024-09-10] MEDS: LORazepam 2MG/ML-1ML VIAL IV ONE ×2 (04:15→06:10)
[2024-09-10] MEDS: NOREPINEPHRINE 8 MG/250ML KIT 250 ML IV SCH (04:21)
--- NOTE | 2024-09-10 04:29 | ECG ---
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
[2024-09-10] MEDS: KETOROLAC TROMETH 30 MG/ML 1ML VIAL IV ONE (04:37)
[2024-09-10] MEDS: SODIUM CHLORIDE 0.9% 1,000 ML IV ONE (05:30)
[2024-09-10 06:05] LABS: COVID19 ANTIGEN SOFIA FIA NEGATIVE (NEGATIVE); Rapid Influenza A Negative (Negative); Rapid Influenza B Negative (Negative)
[2024-09-10 07:27] LABS: Sodium 145 mmol/L (136-145)
[2024-09-10 07:28] LABS: Anion Gap 17 (5-15)
[2024-09-10 07:29] LABS: Calcium 7.6 mg/dL (8.7-10.4); Carbon Dioxide 14 mmol/L (20-31); Chloride 114 mmol/L (98-107); Potassium 3.4 mmol/L (3.5-5.1)
[2024-09-10 07:34] LABS: BUN/Creatinine Ratio 6.2 (10.0-20.0); Blood Urea Nitrogen 11 mg/dL (9-23)
[2024-09-10 07:39] LABS: Glucose 113 mg/dL (74-106)
[2024-09-10] MEDS ORDERED: DOCUSATE SOD 100 MG CAP PO PRN (10:00)
--- NOTE | 2024-09-10 10:20 | DVHHP2 ---
History of Present Illness Reason for Visit: Sepsis, unspecified organism History of Present Illness The patient is a 64-year-old female with past medical history of uterine cancer, hyperlipidemia, and thyroid disease who presented to [facility] ED for evaluation of altered level of consciousness. As reported by EMS, family called regarding patient's states of mental status characterized by confusion, generalized weakness, dizziness, nausea, bowel incontinence, urinary retention, getting worse that prompted this visit. Patient was seen and evaluated in the ED, laboratory data shows WBC 9.1, hemoglobin 9.7, hematocrit 32.4, platelets 194, sodium 145, potassium 3.4, BUN 11, creatinine 1.78, GFR 31, glucose 113, anion gap 17, bicarbonate 15.3, calcium 7.6, lactic acid 7.5 trending down to 7.1, troponin 29, albumin 2.7, protein 5.5, blood pressure 75/64 trending up to 96/40, heart rate 152 trending down to 104, temperature 101.3 F trending down to 98.7 F, O2 saturation 96% on oxygen. Chest x-ray revealing patchy consolidations in the right mid and both lower lungs, bilateral pleural effusions, mild cardiomegaly. Patient was started on IV Levophed, please see medication orders section in the computer. On my assessment, patient denies chest pain, no diaphoresis, no headache, currently on oxygen, no abdominal pain, no diarrhea, no nausea, no vomiting, no fever, no chills. Patient was admitted for further evaluation and medical management. Past Medical History Uterine cancer, High Lipids, hypothyroidism Past Surgical History BTL, Cholecystectomy, Tubal Ligation, Esophageal surgery Family History Reviewed, noncontributory to the management of this case. Past Social History Patient lives at home, smokes cigarettes, denies alcohol illicit drugs abuse. Review of Systems Constitutional: Yes: Weakness; No: Fever, Chills, Sweats, Malaise, Other Eyes: No: Pain, Vision change, Conjunctivae inflammation, Eyelid inflammation, Other, Redness ENT: No: Ear pain, Ear discharge, Nose pain, Nose discharge, Nose congestion, Mouth pain, Mouth swelling, Throat pain, Throat swelling, Other Respiratory: Shortness of breath; No: Cough, Dry, SOB with excertion, Wheezing, Hemoptysis, Pleuritic Pain, Sputum, Wheezing, Other Cardiovascular: No: Chest Pain, Palpitations, Orthopnea, Paroxysmal Noc. Dyspnea, Edema, Lt Headedness, Other Gastrointestinal: No: Nausea, Vomiting, Abdominal Pain, Diarrhea, Constipation, Melena, Hematochezia, Other Genitourinary: No Dysuria, No Frequency, No Incontinence, No Hematuria, No Retention, No Other Musculoskeletal: No: other, neck pain, shoulder pain, arm pain, back pain, hand pain, leg pain, foot pain Skin: No: Rash, Lesions, Jaundice, Bruising, Other Neurological: Weakness; No: Numbness, Incoordination, Change in speech, Confusion, Seizures, Other Allergies: Coded Allergies: NO KNOWN ALLERGIES (Unverified , 10/01/19) Medications Current Medications Medications Dose Ordered Sig/Lou Route Start Time Stop Time Status Last Admin Dose Admin Vancomycin HCl 0 ml @ 0 mls/hr UD IV 09/10/24 00:00 UNV Norepinephrine Bitartrate 250 ml @ 3.75 mls/hr Q24H IV 09/10/24 04:15 09/10/24 04:21 3.75 MLS/HR Azithromycin 250 ml @ 125 mls/hr DAILY IV 09/10/24 10:00 Sodium Chloride 10 ml Q8HR IV 09/10/24 14:00 Acetaminophen/ Hydrocodone Bitart 1 tab Q4HP PRN PO 09/10/24 10:00 Ondansetron HCl 4 mg Q4HP PRN IV 09/10/24 10:00 Docusate Sodium 100 mg BIDPRN PRN PO 09/10/24 10:00 Acetaminophen 650 mg Q6HP PRN PO 09/10/24 10:00 Exam Vital Signs Vital Signs Date Time Temp Pulse Resp B/P (MAP) Pulse Ox O2 Delivery O2 Flow Rate FiO2 09/10/24 10:00 95 15 99/48 (65) 100 09/10/24 09:51 Room Air* 0 21 09/10/24 07:00 98.7 98.7 General Appearance: Alert, Oriented X3, Cooperative HEENT: Atraumatic, PERRLA, EOMI, Mucous membr. moist/pink Respiratory: Normal air movement, Other (Diminished breath sounds) Cardiovascular: Regular rate, Normal S1, Normal S2, No murmurs Abdominal: Normal bowel sounds, Soft, No tenderness, No hepatospenomegaly, No masses Extremities: No clubbing, No cyanosis, No edema, Normal pulses, No tenderness/swelling Skin: No rashes, No breakdown, No significant lesion Neuro: Normal speech, Normal tone, Sensation intact, Cranial nerves 3-12 NL, Reflexes 2+, Other (Generalized weakness) Psych/Mental Status: Mental status NL, Mood NL Labs/Xrays Labs Test 09/10/24 09:18 09/10/24 03:47 09/10/24 03:13 09/10/24 03:10 Range/Units POC Glucose 120 H 70-106 mg/dl Influenza Type A Antigen Negative Negative Influenza Type B Antigen Negative Negative SARS-CoV-2 Antigen (Rapid) Negative NEGATIVE Sodium Level 145 136-145 mmol/L Potassium Level 3.4 L 3.5-5.1 mmol/L Chloride Level 114 H 98-107 mmol/L Carbon Dioxide Level 14 L 20-31 mmol/L Anion Gap 17 H 5-15 Blood Urea Nitrogen 11 9-23 mg/dL Creatinine 1.78 H 0.550-1.02 mg/dL Glomerular Filtration Rate Calc 31 >90 mL/min BUN/Creatinine Ratio 6.2 L 10.0-20.0 Serum Glucose 113 H 74-106 mg/dL Lactic Acid Level 7.5 *H 0.4-2.0 mmol/L Calcium Level 7.6 L 8.7-10.4 mg/dL Ammonia < 10 L 11-32 umol/L Test 09/10/24 01:52 09/10/24 00:44 09/09/24 23:34 Range/Units Urine Color Light-yellow Yellow Urine Clarity Turbid H Clear Urine pH 5.5 5.0-9.0 Urine Specific Ethel 1.011 1.001-1.035 Urine Protein 1+ H Negative Urine Ketones Trace Negative Urine Blood Negative Negative /uL Urine Nitrite Negative Negative Urine Bilirubin Negative Negative Urine Urobilinogen Normal Negative mg/dL Urine Leukocyte Esterase Negative Negative /uL Urine RBC 2 0 - 4 /hpf Urine WBC 5 0 - 5 /hpf Urine Squamous Epithelial Cells Few <5 /hpf Urine Amorphous Crystals Few None Seen /hpf Urine Bacteria Few H None Seen /hpf Urine Hyaline Casts Mod 0 - 2 /lpf Urine Mucus Few None Seen Urine Glucose Normal Normal mg/dL Urine Opiates Screen Neg NEGATIVE Urine Fentanyl Screen Neg NEGATIVE Urine Barbiturates Screen Neg NEGATIVE Urine Phencyclidine Screen Neg NEGATIVE Urine Amphetamines Screen Neg NEGATIVE Urine Benzodiazepines Screen Neg NEGATIVE Urine Cocaine Screen Neg NEGATIVE Urine Cannabinoids Screen Neg NEGATIVE White Blood Count 9.1 4.4-10.8 10^3/uL Red Blood Count 3.98 L 4.0-5.20 10^6/uL Hemoglobin 9.7 L 12.2-16.2 g/dL Hematocrit 32.4 L 36.0-46.0 % Mean Corpuscular Volume 81.6 80.0-100.0 fL Mean Corpuscular Hemoglobin 24.4 L 28.0-32.0 pg Mean Corpuscular Hemoglobin Concent 29.9 L 32.0-36.0 g/dL Red Cell Distribution Width 19.7 H 11.8-14.3 % Platelet Count 194 140-450 10^3/uL Mean Platelet Volume 7.8 6.9-10.8 fL Neutrophils (%) (Auto) 37.0-80.0 % Lymphocytes (%) (Auto) 10.0-50.0 % Monocytes (%) (Auto) 0.0-12.0 % Basophils (%) (Auto) 0.0-2.0 % Neutrophils # (Auto) 1.6-8.6 10 ^3/uL Lymphocytes # (Auto) 0.4-5.4 10 ^3/uL Monocytes # (Auto) 0-1.3 10 ^3/uL Differential Total Cells Counted 100.0 100 Neutrophils % (Manual) 82 H 37.0-80.0 Band Neutrophils % (Manual) 10 Lymphocytes % (Manual) 2 L 10.0-50.0 Monocytes % (Manual) 3 0-12 Eosinophils % (Manual) 0 0-7 Basophils % (Manual) 0 0.0-2.0 Metamyelocytes % (manual) 1 Myelocytes % (Manual) 2 Promyelocytes % (Manual) 0 Blast Cells % (Manual) 0 Nucleated Red Blood Cells 1.0 % Reactive Lymphocytes 0 Platelet Estimate Adequate Hypochromasia (manual) Slight Anisocytosis (manual) Slight Magnesium Level 1.4 L 1.6-2.6 mg/dL Total Bilirubin 0.5 0.2-1.0 mg/dL Aspartate Amino Transferase (AST) 34 13-40 U/L Alanine Aminotransferase (ALT) 10 7-40 U/L Alkaline Phosphatase 89 46-116 U/L Troponin I High Sensitivity 29 </=34 ng/L Total Protein 5.5 L 5.7-8.2 g/dL Albumin 2.7 L 3.2-4.8 g/dL Plasma/Serum Blood Alcohol < 3.0 <10 mg/dL Blood Gas Specimen Type Arterial Blood Gas Sample Site Right radial Blood Gas Patient Temperature 37.0 Arterial Blood Date Drawn Arterial Blood pH 7.525 H 7.350-7.450 Arterial Blood Partial Pressure CO2 18.9 *L 32.0-45.0 mmHg Arterial Blood Partial Pressure O2 148.0 H 83.0-108.0 mmHg Arterial Blood HCO3 15.3 L 21.0-28.0 mmol/L Arterial Blood Oxygen Saturation 98.8 H 94.0-98.0 % Arterial Blood Base Excess -5.5 L -2.0-3.0 mmol/L Arterial Blood Oxyhemoglobin 97.8 94.0-98.0 % Arterial Blood Carboxyhemoglobin 0.3 L 0.5-1.5 % Arterial Blood Methemoglobin 0.7 0.0-1.5 % Blaine Test Yes Blood Gas Total Hemoglobin 11.20 L 12.0-16.0 g/dL Blood Gas Modality Nasal cannula FiO2 % 32.0 Blood Gas Critical Value Read Back Yes Blood Gas Notified Whom Gaviota erwin md Blood Gas Notified Time [id number] Blood Gas Notified By Hay Rake Operator barber ventura PATIENT: JOSLYN ARMSTRONG ACCT: [id number] UNIT: [id number] : 1960 LOC: ER ROOM / BED: / AGE / SEX: 64 / F ADM STATUS: REG ER SERVICE [id number] ORDERING PHYSICIAN: MILTON ERWIN MD PROCEDURE(s): CTCAP - CHST AB PEL WO CON-NO IV/ORAL REASON: Sepsis ORDER NUMBER(s): [id number], ACCESSION NUMBER(s): [id number] Examination: CTCAP CLINICAL INDICATION: Sepsis. COMPARISON: None. CONTRAST USED: None. TECHNIQUE: A plain CT study of the chest abdomen and pelvis is performed after administration of intravenous contrast medium. The examination was performed with 5 mm thin slices. Multiplanar reconstructions were obtained. CT scan done according to ALARA (As Low As Reasonably Achievable). FINDINGS: Lower neck and thyroid: Unremarkable Lungs and pleura: The pulmonary parenchyma does not show any significant abnormality. No pulmonary nodules are detected. Mediastinum and great vessels: The trachea and the mainstem bronchi are normal. No significant mediastinal lymphadenopathy is detected. The mediastinal vascu lature appears normal. Pleural spaces are clear. Heart is normal in size. No pericardial effusion. Small sliding hiatus hernia is seen. Chest wall and Axillae: Unremarkable. CT ABDOMEN: Liver: The liver is normal in size. Small calcified granuloma is seen in segment of liver. The portal venous radicles are normal. There is no intrahepatic biliary radicle dilatation. Gallbladder: The gallbladder is not visualized (post operative status). Common bile duct stent is seen in place. No pneumobilia. Pancreas: The pancreas is normal in size and shape. No focal lesion is seen within. The peripancreatic fat-planes are normal. Spleen: The spleen is normal in size and does not show any focal abnormality. Retroperitoneum: Both adrenal glands are normal in size and morphology. There is no significant retroperitoneal lymphadenopathy. The kidneys are normal in size with no hydronephrosis. Non-obstructive calculus measuring 2 mm is seen in the upper pole of right kidney. Probable prominent left renal pelvis. Parapelvic cyst is seen. Suggest CT urography correlation. Vessels: Aorta, IVC and the mesenteric vessels appear normal. Stomach and bowel: The bowel loops are unremarkable. There is no ascites. Skeletal system: Degenerative changes are seen involving the spine in the form of marginal osteophytes. Grade I anterolisthesis of L3 on L4 vertebra is seen. CT PELVIS: Appendix: The appendix is unremarkable in appearance. Colon: The ascending, transverse, descending, sigmoid colon and rectum are unremarkable. Bladder: The urinary bladder is empty with Foleys catheter seen in the lumen. Uterus and ovaries: Post-hysterectomy status. No adnexal pathology. No abnormal fluid collection is seen. No pelvic lymphadenopathy is identified. IMPRESSION: 1. The pulmonary parenchyma does not show any significant abnormality. 2. Non-obstructive calculus measuring 2 mm is seen in the upper pole of right kidney. 3. Probable prominent left renal pelvis. Parapelvic cyst is seen. Suggest CT urography correlation. 4. No abdominal mass or adenopathy 5. No ascites. 6. No free air or inflammatory changes. 7. Additional chronic and/or ancillary findings as detailed above. 8. Suggest clinical correlation and follow-up as clinically deemed necessary. ORDERING PHYSICIAN: MILTON ERWIN MD PROCEDURE(s): HWOCT - HEAD WITHOUT CONTRAST REASON: ams ORDER NUMBER(s): [id number], ACCESSION NUMBER(s): [id number] Examination: HWOCT CLINICAL INDICATION: ams COMPARISON: None. CONTRAST USED: Intravenous. TECHNIQUE: The examination was performed obtaining 5 mm slices without contrast. Multiplanar reconstructions were obtained. CT scan done according to ALARA (As Low As Reasonably Achievable). FINDINGS: SUPRATENTORIAL BRAIN: Motion artefacts are seen compromising image quality limiting evaluation. Cerebral Hemispheres: There is no midline shift or mass effect, intra or extra- axial fluid collections or hemorrhage. Periventricular White Matter/Basal Ganglia: No abnormal areas of altered attenuation within the periventricular white matter or basal ganglia. POSTERIOR FOSSA: The brainstem is normal and the visualized cerebellar hemispheres are unremarkable. VENTRICULAR SYSTEM: Generalized prominence of the ventricular system, cisterns, sulcal spaces and cerebellar foliae is seen, suggestive of age-related cortico- cerebral and cerebellar atrophy. There is no evidence of hydrocephalus or transependymal flow of cerebrospinal fluid. SKULL BASE AND PARASELLAR REGION: The skull base is normal with no parasellar masses or abnormalities identified. CALVARIUM AND SCALP REGION: No abnormality is seen. PARANASAL SINUSES: No significant inflammatory changes are identified in the paranasal sinuses. IMPRESSION: 1. Mild age-related cortico-cerebral and cerebellar atrophy. 2. No acute infarct or space occupying lesion is seen. 3. No intracranial hemorrhage or calvarial fracture. 4. Suggest MRI brain correlation if clinically deemed necessary. ORDERING PHYSICIAN: MILTON ERWIN MD PROCEDURE(s): CXR1 - CHEST XRAY 1 VIEW REASON: septic ORDER NUMBER(s): [id number], ACCESSION NUMBER(s): [id number] Examination: CXR1 Clinical Indication: septic Comparison: None. Technique: Frontal radiograph of the chest was obtained. Findings: Limited evaluation, as the patient is in rotation and due to patients body habitus. Inhomogeneous radiopacities in right mid and both lower lungs, suggestive of patchy consolidations. Blunting of the bilateral costophrenic angles, suggestive of bilateral pleural effusions. There is no pneumothorax. Mild cardiomegaly. Ectatic thoracic aorta. Mild superior mediastinal widening. No acute osseous abnormality is seen. Impression: 1. Limited evaluation, as the patient is in rotation and due to patients body habitus. 2. Patchy consolidations in the right mid and both lower lungs. 3. Bilateral pleural effusions. Mild cardiomegaly. 4. Mild superior mediastinal widening. Advised further evaluation with CT chest without contrast. Assessment/Plan Assessment/Plan Altered mental status Anemia, unspecified Metabolic encephalopathy Acute renal failure Hypovolemic shock Generalized weakness Sepsis, unspecified organisms Plan 1. Admit to intensive care unit 2. Breathing treatment 3. Pain control management 4. IV antibiotic management 5. Management of fluids and electrolytes 6. Consultation for Cardiology/hospitalist 7. Diagnostic test head CT 8. DVT prophylaxis-on SCDs 9. Repeat labs CBC, CMP in a.m. 10. Home medication reviewed and reconciled 11. Continue with current medical management 12. Treatment plan discussed with patient and RN. Patient verbalized un derstanding. Plan discussed with: Patient, Other (RN) My Orders Orders - YOLI HAUSER DNP Procedure Category Date Status Time * Cardiology Consult CONS 09/10/24 Transmitted 09:47 *Dr. [facility] CONS 09/10/24 Transmitted -[place] 09:47 Azithromycin 500mg/ PHA 09/10/24 In Process 250ml (Zithromax 50 10:00 Calcium Gluc PHA 09/10/24 In Process 1,000mg/50ml-Ns 10:00 Albumin 25% (Albutein) PHA 09/10/24 Logged 10:15 Type And Screen BBK 09/10/24 Logged 09:47 Thyroid Stimulating LAB 09/10/24 In Process Hormone 09:47 Allergies LUCIEN 09/10/24 In Process 09:47 Code Status CODE 09/10/24 Transmitted 09:47 Sodium Chloride Lock PHA 09/10/24 In Process (Saline Lock Ns) 14:00 Oxygen Per Hour RT 09/10/24 Transmitted 09:47 Hydrocodone-Acet PHA 09/10/24 In Process 5/325mg Tab ([place] 10:00 Ondansetron Hcl PHA 09/10/24 In Process (Zofran) 10:00 Docusate Sodium PHA 09/10/24 In Process Capsule (Colace 10:00 Fall Risk Precautions LUCIEN 09/10/[address] 09:47 Complete Blood Count LAB 09/11/24 Verified 04:00 Comprehensive LAB 09/11/24 Verified Metabolic Panel 04:00 Cardiac DIET 09/10/24 Transmitted Diet-2gna,Lofat,Lochol Lunch Condition: Serious LUICEN 09/10/24 In Process 09:47 Acetaminophen Tablet PHA 09/10/24 In Process (Tylenol Tablet) 10:00 Sequential LUCIEN 09/10/24 In Process Compression Device B-Type Natriuretic LAB 09/10/24 In Process Peptide 09:47 Lactic Acid W/ Reflex LAB 09/10/24 Logged Order 10:11 Problem List: (1) Altered mental status (2) Metabolic encephalopathy (3) Sepsis, unspecified organism (4) Hypovolemic shock (5) Acute renal failure (6) Generalized weakness (7) Anemia, unspecified Date of Service: Sep 10, 2024 Billing Provider: YOLI HAUSER DNP Common Visit Codes: 77815-[id number] INP/OBS CARE (HIGH) YOLI HAUSER DNP Sep 10, 2024 10:20
[2024-09-10] MEDS: SODIUM BICARB 8.4% 50Meq/50ml SYR Vial IV ONE (10:28)
[2024-09-10] MEDS: ALBUMIN 25% 100 ML IV ONE (10:28)
[2024-09-10] MEDS: CALCIUM GLUC 1,000mg/50ml-NS 50 ML IV ONE (10:29)
[2024-09-10] MEDS: AZITHROMYCIN 500MG/ 250ML 250 ML IV SCH (10:29)
[2024-09-10] MEDS ORDERED: MORPHINE SULFATE INJ 2 MG/ml SYRG IV PRN (10:30)
[2024-09-10] MEDS ORDERED: NITROGLYCERIN 0.4 MG SL TAB SL PRN (10:30)
[2024-09-10 11:46] LABS: Lactic Acid w/Reflex 7.1 mmol/L (0.4-2.0)
[2024-09-10 12:20] LABS: INR 1.25 (0.9-1.15); Partial Thromboplastin Time 32.5 SEC (24.5-34.5)
--- NOTE | 2024-09-10 12:39 | CONS ---
Pharmacy Clinical Information: Patient QTc = 585; recommend d/c azithromycin due to QT prolongation RODNEY LAZAR PHARMACIST Sep 10, 2024 12:39
--- NOTE | 2024-09-10 12:41 | DVHINCON2 ---
Date of service: Sep 10, 2024 Referring Physician Hospitalist Reason for Consultation Acute kidney injury History of Present Illness 64-year-old morbidly obese white female poor historian reports she was a former smoker presents to the hospital brought in by family due to weakness. Patient is unclear as to the symptoms at present ill-appearing reports that she has been weak and has not been able to eat for the last several days. Nephrology consulted due to elevated creatinine Allergies: Coded Allergies: NO KNOWN ALLERGIES (Unverified , 10/01/19) Home Meds Unable to Obtain Active Prescriptions or Reported Meds Current Medications Current Medications Medications (Trade) Dose Ordered Sig/Lou Route PRN Reason Start Time Stop Time Status Last Admin Vancomycin HCl 0 ml @ 0 mls/hr UD IV 09/10/24 00:00 Acetaminophen (Ofirmev) 1,000 mg [id number] PRN IV PAIN SCALE 1-3 OR TEMP>100.4 09/10/24 03:30 09/10/24 03:31 DC 09/10/24 03:32 Norepinephrine Bitartrate 250 ml @ 3.75 mls/hr Q24H IV 09/10/24 04:15 09/10/24 10:26 Azithromycin 250 ml @ 125 mls/hr DAILY IV 09/10/24 10:00 09/10/24 10:29 Sodium Chloride (Saline Lock Ns) 10 ml Q8HR IV 09/10/24 14:00 Acetaminophen/ Hydrocodone Bitart ([place] 5/325MG Tab) 1 tab Q4HP PRN PO MODERATE PAIN (4-6 PAIN SCALE) 09/10/24 10:00 Ondansetron HCl (Zofran) 4 mg Q4HP PRN IV NAUSEA / VOMITING 09/10/24 10:00 Docusate Sodium (Colace Capsule) 100 mg BIDPRN PRN PO FOR CONSTIPATION 09/10/24 10:00 Acetaminophen (Tylenol Tablet) 650 mg Q6HP PRN PO PAIN SCALE 1-3 OR TEMP>100.4 09/10/24 10:00 Nitroglycerin (Ntrostat Sublingual) 0.4 mg Q5MINP PRN SL FOR CHEST PAIN 09/10/24 10:30 Morphine Sulfate 2 mg Q30M PRN IV FOR CHEST PAIN 09/10/24 10:30 Review of Systems Generalized weakness H&P Exam Vital Signs/I&O Vital Sign Date Time Temp Pulse Resp B/P (MAP) Pulse Ox O2 Delivery O2 Flow Rate FiO2 09/10/24 12:35 87/40 09/10/24 10:00 95 15 100 09/10/24 09:51 Room Air* 0 21 09/10/24 07:00 98.7 98.7 Intake and Output 09/09/24 09/10/24 19:00 07:00 Intake Total 5566.535 ml Balance 5566.535 ml Intake IV Total 5566.535 ml Physical Exam Morbidly obese female Appears mildly lethargic able to answer questions No pitting edema Abdomen is soft Regular rate and rhythm Lungs clear to auscultation Labs/Diagnostic Data Labs/Diagnostic Data Laboratory Tests Test 09/10/24 10:21 09/10/24 09:18 09/10/24 03:47 09/10/24 03:13 Range/Units Prothrombin Time 13.0 H 9.3-11.8 sec Prothrombin Time INR 1.25 H 0.9-1.15 Activated Partial Thromboplast Time 32.5 24.5-34.5 SEC Lactic Acid Level 7.1 *H 0.4-2.0 mmol/L POC Glucose 120 H 70-106 mg/dl Influenza Type A Antigen Negative Negative Influenza Type B Antigen Negative Negative SARS-CoV-2 Antigen (Rapid) Negative NEGATIVE Thyroid Stimulating Hormone (TSH) 2.07 0.55-4.78 uIU/mL Test 09/10/24 03:10 09/10/24 01:52 09/10/24 00:44 09/09/24 23:34 Range/Units Sodium Level 145 143 136-145 mmol/L Potassium Level 3.4 L 3.3 L 3.5-5.1 mmol/L Chloride Level 114 H 112 H 98-107 mmol/L Carbon Dioxide Level 14 L 17 L 20-31 mmol/L Anion Gap 17 H 14 5-15 Blood Urea Nitrogen 11 10 9-23 mg/dL Creatinine 1.78 H 1.56 H 0.550-1.02 mg/dL Glomerular Filtration Rate Calc 31 36 >90 mL/min BUN/Creatinine Ratio 6.2 L 6.4 L 10.0-20.0 Serum Glucose 113 H 111 H 74-106 mg/dL Lactic Acid Level 7.5 *H 7.3 *H 0.4-2.0 mmol/L Calcium Level 7.6 L 7.9 L 8.7-10.4 mg/dL Ammonia < 10 L 11-32 umol/L Urine Color Light-yellow Yellow Urine Clarity Turbid H Clear Urine pH 5.5 5.0-9.0 Urine Specific [place] 1.011 1.001-1.035 Urine Protein 1+ H Negative Urine Ketones Trace Negative Urine Blood Negative Negative /uL Urine Nitrite Negative Negative Urine Bilirubin Negative Negative Urine Urobilinogen Normal Negative mg/dL Urine Leukocyte Esterase Negative Negative /uL Urine RBC 2 0 - 4 /hpf Urine WBC 5 0 - 5 /hpf Urine Squamous Epithelial Cells Few <5 /hpf Urine Amorphous Crystals Few None Seen /hpf Urine Bacteria Few H None Seen /hpf Urine Hyaline Casts Mod 0 - 2 /lpf Urine Mucus Few None Seen Urine Glucose Normal Normal mg/dL Urine Opiates Screen Neg NEGATIVE Urine Fentanyl Screen Neg NEGATIVE Urine Barbiturates Screen Neg NEGATIVE Urine Phencyclidine Screen Neg NEGATIVE Urine Amphetamines Screen Neg NEGATIVE Urine Benzodiazepines Screen Neg NEGATIVE Urine Cocaine Screen Neg NEGATIVE Urine Cannabinoids Screen Neg NEGATIVE White Blood Count 9.1 4.4-10.8 10^3/uL Red Blood Count 3.98 L 4.0-5.20 10^6/uL Hemoglobin 9.7 L 12.2-16.2 g/dL Hematocrit 32.4 L 36.0-46.0 % Mean Corpuscular Volume 81.6 80.0-100.0 fL Mean Corpuscular Hemoglobin 24.4 L 28.0-32.0 pg Mean Corpuscular Hemoglobin Concent 29.9 L 32.0-36.0 g/dL Red Cell Distribution Width 19.7 H 11.8-14.3 % Platelet Count 194 140-450 10^3/uL Mean Platelet Volume 7.8 6.9-10.8 fL Neutrophils (%) (Auto) 37.0-80.0 % Lymphocytes (%) (Auto) 10.0-50.0 % Monocytes (%) (Auto) 0.0-12.0 % Basophils (%) (Auto) 0.0-2.0 % Neutrophils # (Auto) 1.6-8.6 10 ^3/uL Lymphocytes # (Auto) 0.4-5.4 10 ^3/uL Monocytes # (Auto) 0-1.3 10 ^3/uL Differential Total Cells Counted 100.0 100 Neutrophils % (Manual) 82 H 37.0-80.0 Band Neutrophils % (Manual) 10 Lymphocytes % (Manual) 2 L 10.0-50.0 Monocytes % (Manual) 3 0-12 Eosinophils % (Manual) 0 0-7 Basophils % (Manual) 0 0.0-2.0 Metamyelocytes % (manual) 1 Myelocytes % (Manual) 2 Promyelocytes % (Manual) 0 Blast Cells % (Manual) 0 Nucleated Red Blood Cells 1.0 % Reactive Lymphocytes 0 Platelet Estimate Adequate Hypochromasia (manual) Slight Anisocytosis (manual) Slight Magnesium Level 1.4 L 1.6-2.6 mg/dL Total Bilirubin 0.5 0.2-1.0 mg/dL Aspartate Amino Transferase (AST) 34 13-40 U/L Alanine Aminotransferase (ALT) 10 7-40 U/L Alkaline Phosphatase 89 46-116 U/L Troponin I High Sensitivity 29 </=34 ng/L B-Type Natriuretic Peptide 121.28 0-100 pg/mL Total Protein 5.5 L 5.7-8.2 g/dL Albumin 2.7 L 3.2-4.8 g/dL Plasma/Serum Blood Alcohol < 3.0 <10 mg/dL Blood Gas Specimen Type Arterial Blood Gas Sample Site Right radial Blood Gas Patient Temperature 37.0 Arterial Blood Date Drawn Arterial Blood pH 7.525 H 7.350-7.450 Arterial Blood Partial Pressure CO2 18.9 *L 32.0-45.0 mmHg Arterial Blood Partial Pressure O2 148.0 H 83.0-108.0 mmHg Arterial Blood HCO3 15.3 L 21.0-28.0 mmol/L Arterial Blood Oxygen Saturation 98.8 H 94.0-98.0 % Arterial Blood Base Excess -5.5 L -2.0-3.0 mmol/L Arterial Blood Oxyhemoglobin 97.8 94.0-98.0 % Arterial Blood Carboxyhemoglobin 0.3 L 0.5-1.5 % Arterial Blood Methemoglobin 0.7 0.0-1.5 % Blaine Test Yes Blood Gas Total Hemoglobin 11.20 L 12.0-16.0 g/dL Blood Gas Modality Nasal cannula FiO2 % 32.0 Blood Gas Critical Value Read Back Yes Blood Gas Notified Roseann suarez md Blood Gas Notified Time [id number] Blood Gas Notified By Steamfitter Supervisor t lorenzo Assessment Acute kidney injury hemodynamically mediated in the setting of hypotension Altered mental status Sepsis likely secondary to pneumonia No previous baseline renal function Currently on IV fluids Maintain mean arterial pressure greater than 65 Currently on Levophed IV antibiotics Renal dose medications Obtain cultures Plan discussed with: Patient DORIS JAUREGUI MD Sep 10, 2024 12:41
[2024-09-10] MEDS: LACTATED RINGER'S 1,000 ML IV ONE ×2 (12:58→17:30)
[2024-09-10] MEDS: SODIUM CHLOR 0.9% PF (SALINE LOCK) 10ML VIAL/SYR IV SCH ×2 (14:09→23:36)
[2024-09-10] MEDS: LIDOCAINE 1% (LOCAL ANESTH.) PF 5ml SDV ID ONE (14:10)
--- NOTE | 2024-09-10 14:24 | DVHINCON2 ---
Date Seen: Sep 10, 2024 Referring Physician PERI Olson Reason for Consultation Hypotension History of Present Illness This is a 64-year-old female patient presents to the emergency room with chief complaint of altered level of mentation. At the time of assessment, patient is now alert oriented X4 and able to answer all questions appropriately. The patient reports that for the past week she has been experiencing symptoms such as generalized fatigue, dizziness, diarrhea, and chills. On the day of admission, the patient reports she does not remember what happened. Per documentation, the patient's family called emergency medical services after they noticed the patient was altered. She was brought to the emergency room for further evaluation. Upon emergency room arrival, the patient's temperature was noted to be 101.3F. Cardiology has now been consulted for hypotension. Initial twelve lead electrocardiogram reveals sinus tachycardia with prolonged QTc interval. Initial troponin level of 29ng/L. Significant past medical history includes hyperlipidemia, vertigo, hypothyroidism, uterine cancer status post radiation and hysterectomy in 2020, and morbid obesity. Past Medical History Past medical history reviewed. No other significant than mentioned above. Past Surgical History Cholecystectomy Hysterectomy in 2020 Left femur and knee repair Family History Family history reviewed. Social History Patient has a 30 pack-year history, quit smoking approximately five years ago Patient denies any illicit drug use Patient denies any alcohol use Allergies: Coded Allergies: NO KNOWN ALLERGIES (Unverified , 10/01/19) Home Meds Unable to Obtain Active Prescriptions or Reported Meds Home Meds Home medications reviewed. Current Medications Current Medications Medications (Trade) Dose Ordered Sig/Lou Route PRN Reason Start Time Stop Time Status Last Admin Vancomycin HCl 0 ml @ 0 mls/hr UD IV 09/10/24 00:00 Acetaminophen (Ofirmev) 1,000 mg [id number] PRN IV PAIN SCALE 1-3 OR TEMP>100.4 09/10/24 03:30 09/10/24 03:31 DC 09/10/24 03:32 Norepinephrine Bitartrate 250 ml @ 3.75 mls/hr Q24H IV 09/10/24 04:15 09/10/24 10:26 Azithromycin 250 ml @ 125 mls/hr DAILY IV 09/10/24 10:00 09/10/24 10:29 Sodium Chloride (Saline Lock Ns) 10 ml Q8HR IV 09/10/24 14:00 09/10/24 14:09 Acetaminophen/ Hydrocodone Bitart ([place] 5/325MG Tab) 1 tab Q4HP PRN PO MODERATE PAIN (4-6 PAIN SCALE) 09/10/24 10:00 Ondansetron HCl (Zofran) 4 mg Q4HP PRN IV NAUSEA / VOMITING 09/10/24 10:00 Docusate Sodium (Colace Capsule) 100 mg BIDPRN PRN PO FOR CONSTIPATION 09/10/24 10:00 Acetaminophen (Tylenol Tablet) 650 mg Q6HP PRN PO PAIN SCALE 1-3 OR TEMP>100.4 09/10/24 10:00 Nitroglycerin (Ntrostat Sublingual) 0.4 mg Q5MINP PRN SL FOR CHEST PAIN 09/10/24 10:30 Morphine Sulfate 2 mg Q30M PRN IV FOR CHEST PAIN 09/10/24 10:30 Vancomycin HCl 100 ml @ 100 mls/hr Q12H IV 09/10/24 16:00 Review of Systems Constitutional: No symptom reported Ears, Nose, & Throat: No symptom reported Eyes: No symptom reported Neurological: Altered level of mentation Pulmonary/Respiratory: No symptoms reported Cardiovascular: No symptom reported Gastrointestinal: No symptom reported Genitourinary: No symptom reported Musculoskeletal: No symptom reported Skin: No symptom reported Psychiatric: No symptom reported Endocrine: No symptom reported Hematologic/Lymphatic: No symptom reported Vital Signs Vital Signs Date Time Temp Pulse Resp B/P (MAP) Pulse Ox O2 Delivery O2 Flow Rate FiO2 09/10/24 14:00 94 15 116/65 (82) 100 09/10/24 09:51 Room Air* 0 21 09/10/24 07:00 98.7 98.7 Physical Exam General Appearance: Cooperative. Morbidly obese Pulmonary/Respiratory: Clear, bilateral breaths sounds. Cardiovascular/Chest: Regular rate and rhythm. Peripheral Pulses: 2+ Radial (R). 2+ Radial (L). 2+ Pedal (R). 2+ Pedal (L) Abdominal Exam: Normal bowel sounds. Ankle Exam: Negative ankle edema Lower extremities: Negative lower extremity edema Neuro/Mental Status: A/OX4, coherent. Thoughts/Psych: Normal thought pattern. Appropriate mood and affect. Good judgment and insight. Appearance: No acute distress. Skin Exam: Normal inspection. Normal color. Warm and dry. Labs/Diagnostic Data Labs Test 09/10/24 10:21 09/10/24 09:18 09/10/24 03:47 09/10/24 03:13 Range/Units Prothrombin Time 13.0 H 9.3-11.8 sec Prothrombin Time INR 1.25 H 0.9-1.15 Activated Partial Thromboplast Time 32.5 24.5-34.5 SEC Lactic Acid Level 7.1 *H 0.4-2.0 mmol/L POC Glucose 120 H 70-106 mg/dl Influenza Type A Antigen Negative Negative Influenza Type B Antigen Negative Negative SARS-CoV-2 Antigen (Rapid) Negative NEGATIVE Thyroid Stimulating Hormone (TSH) 2.07 0.55-4.78 uIU/mL Test 09/10/24 03:10 09/10/24 01:52 09/10/24 00:44 09/09/24 23:34 Range/Units Sodium Level 145 136-145 mmol/L Potassium Level 3.4 L 3.5-5.1 mmol/L Chloride Level 114 H 98-107 mmol/L Carbon Dioxide Level 14 L 20-31 mmol/L Anion Gap 17 H 5-15 Blood Urea Nitrogen 11 9-23 mg/dL Creatinine 1.78 H 0.550-1.02 mg/dL Glomerular Filtration Rate Calc 31 >90 mL/min BUN/Creatinine Ratio 6.2 L 10.0-20.0 Serum Glucose 113 H 74-106 mg/dL Calcium Level 7.6 L 8.7-10.4 mg/dL Ammonia < 10 L 11-32 umol/L Urine Color Light-yellow Yellow Urine Clarity Turbid H Clear Urine pH 5.5 5.0-9.0 Urine Specific [place] 1.011 1.001-1.035 Urine Protein 1+ H Negative Urine Ketones Trace Negative Urine Blood Negative Negative /uL Urine Nitrite Negative Negative Urine Bilirubin Negative Negative Urine Urobilinogen Normal Negative mg/dL Urine Leukocyte Esterase Negative Negative /uL Urine RBC 2 0 - 4 /hpf Urine WBC 5 0 - 5 /hpf Urine Squamous Epithelial Cells Few <5 /hpf Urine Amorphous Crystals Few None Seen /hpf Urine Bacteria Few H None Seen /hpf Urine Hyaline Casts Mod 0 - 2 /lpf Urine Mucus Few None Seen Urine Glucose Normal Normal mg/dL Urine Opiates Screen Neg NEGATIVE Urine Fentanyl Screen Neg NEGATIVE Urine Barbiturates Screen Neg NEGATIVE Urine Phencyclidine Screen Neg NEGATIVE Urine Amphetamines Screen Neg NEGATIVE Urine Benzodiazepines Screen Neg NEGATIVE Urine Cocaine Screen Neg NEGATIVE Urine Cannabinoids Screen Neg NEGATIVE White Blood Count 9.1 4.4-10.8 10^3/uL Red Blood Count 3.98 L 4.0-5.20 10^6/uL Hemoglobin 9.7 L 12.2-16.2 g/dL Hematocrit 32.4 L 36.0-46.0 % Mean Corpuscular Volume 81.6 80.0-100.0 fL Mean Corpuscular Hemoglobin 24.4 L 28.0-32.0 pg Mean Corpuscular Hemoglobin Concent 29.9 L 32.0-36.0 g/dL Red Cell Distribution Width 19.7 H 11.8-14.3 % Platelet Count 194 140-450 10^3/uL Mean Platelet Volume 7.8 6.9-10.8 fL Neutrophils (%) (Auto) 37.0-80.0 % Lymphocytes (%) (Auto) 10.0-50.0 % Monocytes (%) (Auto) 0.0-12.0 % Basophils (%) (Auto) 0.0-2.0 % Neutrophils # (Auto) 1.6-8.6 10 ^3/uL Lymphocytes # (Auto) 0.4-5.4 10 ^3/uL Monocytes # (Auto) 0-1.3 10 ^3/uL Differential Total Cells Counted 100.0 100 Neutrophils % (Manual) 82 H 37.0-80.0 Band Neutrophils % (Manual) 10 Lymphocytes % (Manual) 2 L 10.0-50.0 Monocytes % (Manual) 3 0-12 Eosinophils % (Manual) 0 0-7 Basophils % (Manual) 0 0.0-2.0 Metamyelocytes % (manual) 1 Myelocytes % (Manual) 2 Promyelocytes % (Manual) 0 Blast Cells % (Manual) 0 Nucleated Red Blood Cells 1.0 % Reactive Lymphocytes 0 Platelet Estimate Adequate Hypochromasia (manual) Slight Anisocytosis (manual) Slight Magnesium Level 1.4 L 1.6-2.6 mg/dL Total Bilirubin 0.5 0.2-1.0 mg/dL Aspartate Amino Transferase (AST) 34 13-40 U/L Alanine Aminotransferase (ALT) 10 7-40 U/L Alkaline Phosphatase 89 46-116 U/L Troponin I High Sensitivity 29 </=34 ng/L B-Type Natriuretic Peptide 121.28 0-100 pg/mL Total Protein 5.5 L 5.7-8.2 g/dL Albumin 2.7 L 3.2-4.8 g/dL Plasma/Serum Blood Alcohol < 3.0 <10 mg/dL Blood Gas Specimen Type Arterial Blood Gas Sample Site Right radial Blood Gas Patient Temperature 37.0 Arterial Blood Date Drawn Arterial Blood pH 7.525 H 7.350-7.450 Arterial Blood Partial Pressure CO2 18.9 *L 32.0-45.0 mmHg Arterial Blood Partial Pressure O2 148.0 H 83.0-108.0 mmHg Arterial Blood HCO3 15.3 L 21.0-28.0 mmol/L Arterial Blood Oxygen Saturation 98.8 H 94.0-98.0 % Arterial Blood Base Excess -5.5 L -2.0-3.0 mmol/L Arterial Blood Oxyhemoglobin 97.8 94.0-98.0 % Arterial Blood Carboxyhemoglobin 0.3 L 0.5-1.5 % Arterial Blood Methemoglobin 0.7 0.0-1.5 % [place]aine Test Yes Blood Gas Total Hemoglobin 11.20 L 12.0-16.0 g/dL Blood Gas Modality Nasal cannula FiO2 % 32.0 Blood Gas Critical Value Read Back Yes Blood Gas Notified Whom Gaviota suarez md Blood Gas Notified Time [id number] Blood Gas Notified By Butadiene Compressor Operator barber Thrasher Hypotension likely secondary to sepsis Rule out structural heart disease Hyperlipidemia Thyroid disease Acute kidney injury Morbid obesity History of tobacco use Plan/Recommendation We will continue with the following plan/recommendations (Dr. Sloan): * Echocardiogram to evaluate cardiac function * Vasopressors for hemodynamic support * Monitor and replete electrolytes as needed * Cardiac surveillance: Notify for any ECG changes * Avoid medications that prolong QT interval, as this puts patient at risk for Torsades de Pointes * Pending blood cultures * Antibiotics per primary care team Patient seen and examined at bedside with . Continue with medical management. Thank you for allowing us to care for this patient. Please call with any questions or concerns. Critical care time spent: 42 minutes This medical document was created using an electronic medical record system with voice recognition software and computerized dictation system. Although this document has been carefully reviewed, there might still be some phonetic and ty pographical errors. Occasional wrong-word or ``sound-alike substitutions may have occurred due to the inherent limitations of voice recognition software. These areas are purely typographical due to imperfections of the software programs and do not reflect any compromise in the patient's medical care. Please read the chart carefully and recognize, using context, where these sub stitutions have occurred. Plan discussed with: Patient NYHA Physical activity limitations: NA Date of Service: Sep 10, 2024 Billing Provider: GINETTE SLOAN MD Cardiology Common Codes: 51346-WAFMJOM INP/OBS CARE (High) Cardiology Consultation Codes: 15270-[id number] CONSULT <45MIN ALFREDO GONZALEZ Sep 10, 2024 14:24
--- NOTE | 2024-09-10 15:27 | DVH ---
EXAM: XY CHEST PORTABLE Indication: PICC Tip verification Technique: Single frontal view of the chest was obtained Comparison: XY CHEST XRAY 1 VIEW on DOS: 09/10/24, CHEST PORTABLE on DOS: 10/29/19 FINDINGS: Lines and Tubes: Left PICC tip projects over the superior vena cava. Lungs: Left basilar opacity. Pleura: No effusion. No pneumothorax. Cardiomediastinal contours: Unremarkable Bones: No acute osseous abnormality. IMPRESSION: Left basilar opacity.
[2024-09-10] MEDS: VANCOMYCIN 750MG KIT 100 ML IV SCH (16:00)
[2024-09-10] MEDS: ACETAMINOPHEN 325 MG TAB PO PRN (16:13)
--- NOTE | 2024-09-10 18:59 | DVHSR ---
APPROVED REPORT EXAM: Two-dimensional and M-mode echocardiogram with Doppler and color Doppler. Blood Pressure: 99/48 mmHg INDICATION Evaluate cardiac function RISK FACTORS Obesity: Height: 5'4", Weight: 299 DIMENSIONS LVDd4.4 (3.8-5.7cm)LA (2D)4.0 (1.9-4.0cm)Aortic Root3.0 (2.0-3.7cm) LVDs3.0 (2.5-4.0cm)LA (MM) (1.9-4.0cm)Aortic Cusp Exc1.4 (1.5-2.0cm) EF (%) 61.0 (55-70%)Rt. Atrium4.3 (1.9-4.0cm)Asc. Aorta cm IVSd1.0 (0.7-1.1cm)RV (D)4.2 (1.8-2.4cm) PWd0.9 (0.7-1.1cm) Mitral Valve MitralMitral Stenosis E wave1.03m/sMV Mean GR.mmHg A wave1.00m/sMV Peak GR.mmHg E/A ratio1.02D MVAcm2 DECEL [id number] 1/2 Timems Aortic Valve Aortic ValveAortic Stenosis V10.95m/Analy Mean GR.6mmHg V21.68m/Analy Peak GR.11mmHg LVOT Diameter1.9 (1.8-2.4cm)Doppler AVA1.60cm2 Pulmonic Valve V20.88m/s Tricuspid Valve TR Velocity2.68m/s [id number] LEFT VENTRICLE The left ventricle is normal size. There is normal left ventricular wall thickness. Left ventricle systolic function is normal. The Ejection Fraction is 60-65%. No gross wall motion abnormalites. There is grade II diastolic dysfunction. E to E' is in the normal range. RIGHT VENTRICLE The right ventricle is mildly dilated. The right ventricular systolic function is normal. ATRIA The left atrial size is normal. The right atrium is mildly dilated. Not well visualized. MITRAL VALVE The mitral valve is normal in structure and function. PULMONIC VALVE Likely normal. TRICUSPID VALVE The tricuspid valve is normal in structure and function. There is trace tricuspid regurgitation. Right ventricular systolic pressure is 30-35 mmHg. AORTIC VALVE Normal structure and function. GREAT VESSELS The aortic root is normal size. PERICARDIAL EFFUSION There is a no pericardial effusion. IVC is dilated in size and collapses normally with inspiration. Other Information Technically limited study due to body habitus. Conclusion Normal left ventricular size and systolic function. Mildly dilated right ventricle with normal systolic function. Grade II diastolic dysfunction. Mildly dilated right atrial chamber size. No hemodynamically sgnificant valvular disease. PA systolic pressure is estimated at 30-35 mmHg.
[2024-09-10 20:35] LABS: Lactic Acid w/Reflex 7.9 mmol/L (0.4-2.0)
[2024-09-10] MEDS: ONDANSETRON HCL 4 MG/2 ML VIAL IV PRN (20:40)
[2024-09-10] MEDS: ONDANSETRON HCL 4 MG/2 ML VIAL ONE (20:49)
[2024-09-10] MEDS: HYDROcodone-ACET 5/325MG TAB PO PRN (21:12)
[2024-09-11] VITALS (101 sets, daily range): BP systolic 80–128; BP diastolic 25–71; PULSE 75–121; RESP 11–32; TEMP 97.1–98.2; O2SAT 91–100
[2024-09-11] MEDS: ALBUMIN 5% 250 ML IV ONE ×2 (01:22)
[2024-09-11 04:51] LABS: Hemoglobin 8.3 g/dL (12.2-16.2); Red Cell Distribution Width 19.8 % (11.8-14.3)
[2024-09-11 04:52] LABS: Hematocrit 27.3 % (36.0-46.0); Mean Corpuscular Hemoglobin 24.5 pg (28.0-32.0); Mean Corpuscular Hgb Conc. 30.6 g/dL (32.0-36.0); Platelet Count (auto) 188 10^3/uL (140-450); Red Blood Cells 3.41 10^6/uL (4.0-5.20)
[2024-09-11 05:11] LABS: White Blood Cell 32.6 10^3/uL (4.4-10.8)
[2024-09-11 05:13] LABS: Alanine Aminotransferase 37 U/L (7-40); Albumin 2.8 g/dL (3.2-4.8); Alkaline Phosphatase 94 U/L (46-116); Anion Gap 18 (5-15); Aspartate Aminotransferase 105 U/L (13-40); BUN/Creatinine Ratio 7.3 (10.0-20.0); Blood Urea Nitrogen 15 mg/dL (9-23); Calcium 7.7 mg/dL (8.7-10.4); Carbon Dioxide 12 mmol/L (20-31); Chloride 111 mmol/L (98-107); Glucose 67 mg/dL (74-106); Potassium 3.8 mmol/L (3.5-5.1); Sodium 141 mmol/L (136-145)
[2024-09-11 05:14] LABS: Basophils % (manual) 0 (0.0-2.0); Blast Cells 0; Eosinophils % (manual) 0 (0-7); Metamyelocytes % 0; Myelocytes % 0; Promyelocytes % 0; Reactive Lymphocytes 0
[2024-09-11 05:21] LABS: Bilirubin, Total 1.4 mg/dL (0.2-1.0); Total Protein 5.3 g/dL (5.7-8.2)
[2024-09-11 07:42] LABS: Band Neutrophils % (manual) 32; Hypochromia Slight; Lymphocytes % (manual) 3 (10.0-50.0); Monocytes % (manual) 3 (0-12); Platelet Estimate Adequate
[2024-09-11] MEDS: PHENYLEPHRINE IV 250 ML IV SCH (10:04)
[2024-09-11] MEDS: SODIUM CHLORIDE 0.9% 1,000 ML IV ONE (10:14)
--- NOTE | 2024-09-11 10:24 | DVHPN2 ---
Progress Note Date Seen: Sep 11, 2024 Medical Necessity Reason Pt with a Central, PICC or Fol: Yes The following are medically ne: Velazquez Catheter Subjective Patient reports: Feels worse (Pressor requirements have increased) Review of Systems: RESPIRATORY:Abnormal Objective vital signs Vital Sign Date Time Temp Pulse Resp B/P (MAP) Pulse Ox O2 Delivery O2 Flow Rate FiO2 09/11/24 10:04 89/45 09/11/24 08:00 116 09/11/24 06:30 20 97 09/11/24 06:15 Nasal Cannula* 2 28 09/11/24 04:00 97.4 97.4 Total Intake and Output 09/10/24 09/10/24 09/11/24 15:00 23:00 07:00 Intake Total 1831.25 ml 471.25 ml 1293.75 ml Output Total 360 ml Balance 1831.25 ml 471.25 ml 933.75 ml medications Current Medications Medications Dose Ordered Sig/Lou Route Start Time Stop Time Status Last Admin Dose Admin Vancomycin HCl 0 ml @ 0 mls/hr UD IV 09/10/24 00:00 Norepinephrine Bitartrate 250 ml @ 3.75 mls/hr Q24H IV 09/10/24 04:15 09/11/24 06:02 56.25 MLS/HR Azithromycin 250 ml @ 125 mls/hr DAILY IV 09/10/24 10:00 09/11/24 09:36 125 MLS/HR Sodium Chloride 10 ml Q8HR IV 09/10/24 14:00 09/11/24 05:16 10 ML Acetaminophen/ Hydrocodone Bitart 1 tab Q4HP PRN PO 09/10/24 10:00 09/11/24 08:37 1 TAB Ondansetron HCl 4 mg Q4HP PRN IV 09/10/24 10:00 09/11/24 08:40 4 MG Docusate Sodium 100 mg BIDPRN PRN PO 09/10/24 10:00 Acetaminophen 650 mg Q6HP PRN PO 09/10/24 10:00 09/11/24 05:21 650 MG Nitroglycerin 0.4 mg Q5MINP PRN SL 09/10/24 10:30 Morphine Sulfate 2 mg Q30M PRN IV 09/10/24 10:30 Vancomycin HCl 100 ml @ 100 mls/hr Q12H IV 09/10/24 16:00 09/11/24 03:47 100 MLS/HR Sodium Chloride 10 ml QSHIFT@10,22 IV 09/10/24 22:00 09/11/24 09:40 10 ML Phenylephrine HCl 250 ml @ 30 mls/hr Q8H20M IV 09/11/24 09:00 09/11/24 10:04 30 MLS/HR Sodium Chloride 1,000 ml @ 125 mls/hr Q8H IV 09/11/24 11:00 Examination: GENERAL:Abnormal, LUNGS:Abnormal, CVS:Abnormal laboratory and microbiology Laboratory Tests 09/11/24 04:42 Test 09/11/24 04:42 Range/Units Serum Glucose 67 L 74-106 mg/dL Microbiology Date/Time Source Procedure Growth Status 09/10/24 06:35 Blood Blood Culture - Preliminary NO GROWTH AFTER 24 HOURS OF INCUBATION. Resulted Problem List/Assessment/Plan Problem List/Assessment/Plan Acute kidney injury hemodynamically mediated in setting of hypotension Septic shock secondary to pneumonia Altered mental status Hypotension Anion gap metabolic acidosis IV fluid hydration Pressors to keep mean arterial pressure greater than 65 Strict Is&Os IV antibiotics broad-spectrum Rest of care as per primary medical team Patient remains critically ill due to high pressor requirements. Critical care time 32 minutes Plan discussed with: Patient My Orders My Orders Orders - DORIS JAUREGUI MD Procedure Category Date Status Time Sodium Chloride 0.9% PHA 09/11/24 In Process 11:00 Sodium Chloride 0.9% PHA 09/11/24 In Process 09:45 DORIS JAUREGUI MD Sep 11, 2024 10:24
[2024-09-11] MEDS: SODIUM CHLORIDE 0.9% 1,000 ML IV SCH (11:24)
[2024-09-11] MEDS: ALBUTEROL SULF 2.5 MG/0.5ML(0.5%) NEB SOLN NEB PRN (12:29)
[2024-09-11] MEDS: IPRATROPIUM BROM 0.5 MG/2.5ML INH SOL NEB PRN (12:29)
[2024-09-11] MEDS: DOXYCYCLINE 100MG/100ML 100 ML IV SCH (13:27)
[2024-09-11] MEDS: MAGNESIUM SULFATE 1GM/100ML 100 ML IV ONE (13:27)
[2024-09-11] MEDS: PANTOPRAZOLE 40 MG/10 ML VIAL INJ IV ONE (13:27)
[2024-09-11] MEDS: LORazepam 2MG/ML-1ML VIAL IV SCH (13:45)
[2024-09-11] MEDS: VASOPRESSIN 20 UNITS in SODIUM CHL 0.9% 99 ML IV SCH ×2 (15:16→15:30)
--- NOTE | 2024-09-11 15:37 | DVHPN2 ---
Consult Progress Note Subjective Other Systems: Patient now on two vasopressors Objective vital signs Vital Sign Date Time Temp Pulse Resp B/P (MAP) Pulse Ox O2 Delivery O2 Flow Rate FiO2 09/11/24 15:16 103/55 09/11/24 12:30 18 95 Nasal Cannula* 1 24 09/11/24 12:00 113 09/11/24 04:00 97.4 97.4 Total Intake and Output 09/10/24 09/10/24 09/11/24 15:00 23:00 07:00 Intake Total 1831.25 ml 471.25 ml 1293.75 ml Output Total 360 ml Balance 1831.25 ml 471.25 ml 933.75 ml medications Current Medications Medications Dose Ordered Sig/Lou Route Start Time Stop Time Status Last Admin Dose Admin Norepinephrine Bitartrate 250 ml @ 3.75 mls/hr Q24H IV 09/10/24 04:15 09/11/24 11:42 56.25 MLS/HR Sodium Chloride 10 ml Q8HR IV 09/10/24 14:00 09/11/24 13:27 10 ML Acetaminophen/ Hydrocodone Bitart 1 tab Q4HP PRN PO 09/10/24 10:00 09/11/24 08:37 1 TAB Ondansetron HCl 4 mg Q4HP PRN IV 09/10/24 10:00 09/11/24 08:40 4 MG Docusate Sodium 100 mg BIDPRN PRN PO 09/10/24 10:00 Acetaminophen 650 mg Q6HP PRN PO 09/10/24 10:00 09/11/24 05:21 650 MG Nitroglycerin 0.4 mg Q5MINP PRN SL 09/10/24 10:30 Morphine Sulfate 2 mg Q30M PRN IV 09/10/24 10:30 Sodium Chloride 10 ml QSHIFT@10,22 IV 09/10/24 22:00 09/11/24 09:40 10 ML Phenylephrine HCl 250 ml @ 30 mls/hr Q8H20M IV 09/11/24 09:00 09/11/24 10:04 30 MLS/HR Sodium Chloride 1,000 ml @ 125 mls/hr Q8H IV 09/11/24 11:00 09/11/24 11:24 125 MLS/HR Doxycycline Hyclate 100 ml @ 50 mls/hr Q12H IV 09/11/24 12:00 09/11/24 13:27 50 MLS/HR Piperacillin Sod/ Tazobactam Sod 100 ml @ 25 mls/hr Q8HR IV 09/11/24 14:00 Hydrocortisone Sodium Succinate 100 mg BID IV 09/11/24 22:00 Pantoprazole Sodium 40 mg BID IV 09/11/24 22:00 Albuterol 2.5 mg Q6HPRN PRN NEB 09/11/24 12:00 09/11/24 12:29 2.5 MG Ipratropium [place] 0.5 mg Q6HPRN PRN NEB 09/11/24 12:00 09/11/24 12:29 0.5 MG Vasopressin 20 units/Sodium Chloride 100 ml @ 9 mls/hr Q11H7M IV 09/11/24 12:45 09/11/24 15:16 9 MLS/HR Diphenhydramine HCl 12.5 mg Q4H IV 09/11/24 13:45 Lorazepam 0.5 mg Q6H IV 09/11/24 13:45 Vasopressin 20 units/Sodium Chloride 100 ml @ 9 mls/hr Q11H7M IV 09/11/24 15:30 UNV Examination: GENERAL:Abnormal (Generalized weakness), LUNGS:Normal, CVS:Normal, NEURO:Normal laboratory and microbiology Laboratory Tests 09/11/24 04:42 Test 09/11/24 04:42 Range/Units Serum Glucose 67 L 74-106 mg/dL Problem List/Assessment/Plan Problem List/Assessment/Plan Hypotension likely secondary to sepsis NSTEMI, likely type II secondary to septic shock Acute on Chronic HFpEF, NYHA class III Hyperlipidemia Thyroid disease Acute kidney injury Anemia Morbid obesity History of tobacco use Plan/Recommendation (Dr. Sloan): * Echocardiogram reveals EF 60-65% with grade II diastolic dysfunction * GDMT for CHF when off vasopressor support * Vasopressors for hemodynamic support * Monitor and replete electrolytes as needed * Cardiac surveillance: Notify for any ECG changes * Avoid medications that prolong QT interval, as this puts patient at risk for Torsades de Pointes * Repeat EKG in AM to re-assess QT interval, or any ST segment changes * Antibiotics per primary care team Continue with medical management. Thank you for allowing us to care for this patient. Please call with any questions or concerns. This medical document was created using an electronic medical record system with voice recognition software and computerized dictation system. Although this document has been carefully reviewed, there might still be some phonetic and typographical errors. Occasional wrong-word or ``sound-alike substitutions may have occurred due to the inherent limitations of voice recognition software. These areas are purely typographical due to imperfections of the software programs and do not reflect any compromise in the patient's medical care. Please read the chart carefully and recognize, using context, where these substitutions have occurred. Plan discussed with: Other (Bedside RN) Date of Service: Sep 11, 2024 Billing Provider: GINETTE SLOAN MD Common Visit Codes: [id number] CARE 30-74 MIN ALFREDO GONZALEZ Sep 11, 2024 15:37
--- NOTE | 2024-09-11 16:22 | DVHPNRES ---
Progress Note Date Seen: Sep 11, 2024 Resident Creating Document: IVY MADSEN RESIDENT Has the PT tested + for MRSA If YES, has PT been informed?: No Medical Necessity Reason Pt with a Central, PICC or Fol: Yes The following are medically ne: Velazquez Catheter Subjective Review of Systems This is a 64-year-old female with past medical history of hyperlipidemia, hypothyroidism, vertigo, uterine cancer, status post radiation and hysterectomy in 2020. The patient presented to the ED with chief complaint of altered level of consciousness. Upon admission, the patient was alert and oriented able to answer questions appropriately. Per granddaughter, the patient has been having symptoms for the past week of generalized weakness, dizziness, chills and has recently appear more altered than normal. Granddaughter stated that family noticed that the patient was much more altered recently and even confused her room with a another family members room. They decided to brought her to the emergency for further evaluation. On admission, the patient was having fever, tachycardia and hypotension consistent with septic shock. The patient was started on aggressive IV fluid replacement followed by IV Levophed and phenylephrine. EKG showed sinus tachycardia with prolonged QT interval, initial troponins were slightly elevated and lactic acid was significantly elevated. WBC increased to 32.6k. Patient was admitted for further assessment and management. Patient seen and examined at bedside in the ED. patient is currently on 1 L of oxygen through nasal cannula saturating 95%. The patient is critically ill but he is alert and oriented answering appropriate questions. Patient is currently on Levophed, vasopressin and phenylephrine. Current WBC is significantly elevated at 32.6, lactic acid is significantly elevated at 7.9. Patient initially had fever, tachycardia and hypotension requiring vasopressors consistent with septic shock. Urinalysis came back unremarkable, initial chest x-ray was showing right lower lobe opacities as well as left lower lobe opacities but CT scan of the chest is grossly clear without evidence of focal consolidations or significant pleural effusions. Patient's creatinine and BUN are elevated consistent with RENETTA due to vasomotor nephropathy in the setting of sepsis. Initial blood cultures came back negative and urinary cultures are showing contamination. CT of the head showed no acute ischemia or hemorrhage at this time. We have not been able to identify source of infection at this time. We will continue empiric treatment with IV Zosyn and doxycycline for possible atypical/aspiration pneumonia. ROS Constitutional: Denies weight loss, fever and chills. HEENT: Denies changes in vision and hearing. Respiratory: Reports mild shortness of breath. Denies cough Cardiovascular: Denies chest discomfort or palpitations GI: Denies abdominal pain, nausea, vomiting and diarrhea. : Denies dysuria and urinary frequency. Musculoskeletal: Denies myalgias and joint pain Skin: Denies rash and pruritus. Neurological: Denies dizziness, headache, vision or hearing problems Objective vital signs Vital Sign Date Time Temp Pulse Resp B/P (MAP) Pulse Ox O2 Delivery O2 Flow Rate FiO2 09/11/24 15:16 103/55 09/11/24 12:30 18 95 Nasal Cannula* 1 24 09/11/24 12:00 113 09/11/24 04:00 97.4 97.4 Total Intake and Output 09/10/24 09/10/24 09/11/24 15:00 23:00 07:00 Intake Total 1831.25 ml 471.25 ml 1293.75 ml Output Total 360 ml Balance 1831.25 ml 471.25 ml 933.75 ml medications Current Medications Medications Dose Ordered Sig/Lou Route Start Time Stop Time Status Last Admin Dose Admin Norepinephrine Bitartrate 250 ml @ 3.75 mls/hr Q24H IV 09/10/24 04:15 09/11/24 11:42 56.25 MLS/HR Sodium Chloride 10 ml Q8HR IV 09/10/24 14:00 09/11/24 13:27 10 ML Acetaminophen/ Hydrocodone Bitart 1 tab Q4HP PRN PO 09/10/24 10:00 09/11/24 08:37 1 TAB Ondansetron HCl 4 mg Q4HP PRN IV 09/10/24 10:00 09/11/24 08:40 4 MG Docusate Sodium 100 mg BIDPRN PRN PO 09/10/24 10:00 Acetaminophen 650 mg Q6HP PRN PO 09/10/24 10:00 09/11/24 05:21 650 MG Nitroglycerin 0.4 mg Q5MINP PRN SL 09/10/24 10:30 Morphine Sulfate 2 mg Q30M PRN IV 09/10/24 10:30 Sodium Chloride 10 ml QSHIFT@10,22 IV 09/10/24 22:00 09/11/24 09:40 10 ML Phenylephrine HCl 250 ml @ 30 mls/hr Q8H20M IV 09/11/24 09:00 09/11/24 10:04 30 MLS/HR Sodium Chloride 1,000 ml @ 125 mls/hr Q8H IV 09/11/24 11:00 09/11/24 11:24 125 MLS/HR Doxycycline Hyclate 100 ml @ 50 mls/hr Q12H IV 09/11/24 12:00 09/11/24 13:27 50 MLS/HR Piperacillin Sod/ Tazobactam Sod 100 ml @ 25 mls/hr Q8HR IV 09/11/24 14:00 Hydrocortisone Sodium Succinate 100 mg BID IV 09/11/24 22:00 Pantoprazole Sodium 40 mg BID IV 09/11/24 22:00 Albuterol 2.5 mg Q6HPRN PRN NEB 09/11/24 12:00 09/11/24 12:29 2.5 MG Ipratropium [place] 0.5 mg Q6HPRN PRN NEB 09/11/24 12:00 09/11/24 12:29 0.5 MG Vasopressin 20 units/Sodium Chloride 100 ml @ 9 mls/hr Q11H7M IV 09/11/24 12:45 09/11/24 15:16 9 MLS/HR Diphenhydramine HCl 12.5 mg Q4H IV 09/11/24 13:45 Lorazepam 0.5 mg Q6H IV 09/11/24 13:45 Vasopressin 20 units/Sodium Chloride 100 ml @ 9 mls/hr Q11H7M IV 09/11/24 15:30 UNV Examination Physical Examination General: Patient alert and oriented in person, place and time. Patient following commands. HEENT: Normocephalic, atraumatic, moist mucous membranes Respiratory/pulmonary: There are mild crackles on lung bases, difficult to auscultate due to body habitus. Mild expiratory wheezes. Cardiovascular: Normal heart sounds S1 and S2 with no associated murmurs Abdomen: Abdomen nondistended, there is no pain to palpation in any of the abdominal quadrants, no palpable masses. Extremities: There is no peripheral edema present at the lower extremities. Peripheral Pulses: 3+ Radial (R). 3+ Radial (L). 3+ Dorsalis pedis (R). 3+ Dorsalis pedis(L) Skin: No rashes or pruritus, there is no sacral edema present at this time. Neurological: Intact cranial nerves with no focal neurologic deficits laboratory and microbiology Laboratory Tests 09/11/24 04:42 Test 09/11/24 04:42 Range/Units Serum Glucose 67 L 74-106 mg/dL Microbiology Date/Time Source Procedure Growth Status 09/11/24 08:00 Stool Clostridium difficile Toxin Assay - Final Complete 09/11/24 03:15 Nose MRSA Screen - Final Complete 09/10/24 06:35 Blood Blood Culture - Preliminary NO GROWTH AFTER 24 HOURS OF INCUBATION. Resulted 09/10/24 01:52 Voided Urine Urine Culture - Preliminary Resulted Problem List/Assessment/Plan Problem List/Assessment/Plan Assessment/plan Septic shock, of unknown source Possible atypical pneumonia/aspiration pneumonia Acute toxic/metabolic encephalopathy Altered level of consciousness likely due to above Lactic acidosis -currently saturating 95% on 1 L of oxygen through nasal cannula -start IV Zosyn -start IV doxycycline -start hydrocortisone 100 mg b.i.d. -on IV fluids at 125 cc/hour -currently on Levophed, phenylephrine and vasopressin. Titrating down phenylephrine as tolerated to maintain a MAP of 65 mmHg -respiratory therapy with albuterol and ipratropium med nebs NSTEMI likely type 2 due to septic shock -initial troponins were slightly elevated -trend troponin -cardiology on board RENETTA likely due to vasomotor nephropathy in the setting of septic shock -BUN and creatinine were 15 and 2.05 respectively -IV fluids -monitor kidney function Acute microcytic hypochromic Anemia -Hb initially was 9.7, now 8.3 -ordered iron panel -ordered ferritin -stool occult blood test came back positive R/O GI bleed/Mesenteric ischemia -Patient has no abdominal pain -Stool occult was positive and Hg low -F/U H and H Hypomagnesemia -magnesium was 1.4, magnesium replaced to keep at minimum of 2.0 DVT prophylaxys: SCD, no anticoag due to risk of GI bleed GI prophylaxys on Pantoprazole 40mg IV BID ACP, discussed with patietn and granddaughter at bedside for 15 min Goals of care discussed with the patient at bedside, FULL CODE Plan discussed with Dr. Zuniga Plan discussed with: Patient My Orders My Orders Orders - IVY MADSEN Procedure Category Date Status Time Doxycycline PHA 09/11/24 In Process 100mg/100ml 12:00 Piperacillin-Tazob PHA 09/11/24 In Process 3.375gm (Zosyn 3.375g 14:00 Hydrocortisone PHA 09/11/24 In Process Succinate Inj 22:00 Strict I & O LUCIEN 09/11/24 In Process 11:54 BIPAP RT 09/11/24 Logged 15:19 Sodium Chl 0.9% PHA 09/11/24 Logged (So... W/Vasopressin 15:30 Communication Order ORDERS 09/11/24 Transmitted 15:22 Date of Service: Sep 11, 2024 Billing Provider: MADELIN ARCOS MD Common Visit Codes: [id number] INP/OBS CARE(HIGH) IVY MADSEN RESIDENT Sep 11, 2024 16:22 MADELIN ARCOS MD Sep 13, 2024 15:49
[2024-09-11] MEDS: diphenhdrAMINE HCL 50 MG/1 ML VL IV SCH (17:06)
[2024-09-11] MEDS: PIPERACILLIN-TAZOB 3.375GM 100 ML IV SCH (17:06)
[2024-09-11 17:09] LABS: % Iron Saturation 7.5 % (15-50)
[2024-09-11 17:31] LABS: Hematocrit 34.4 % (36.0-46.0); Hemoglobin 9.4 g/dL (12.2-16.2)
[2024-09-11 18:23] LABS: Base Excess -14.1 mmol/L (-2.0-3.0)
[2024-09-11] MEDS: IRON SUCROSE COMPLEX 110 ML IV SCH (20:11)
[2024-09-11 20:12] LABS: Lactic Acid w/Reflex 5.6 mmol/L (0.4-2.0)
[2024-09-11] MEDS: SODIUM BICARB 8.4% 50Meq/50ml SYR Vial IV ONE (20:29)
[2024-09-11] MEDS: CLOTRIMAZOLE 1 % CREAM 15GM TOP SCH (20:38)
[2024-09-11] MEDS: PANTOPRAZOLE 40 MG/10 ML VIAL INJ IV SCH (20:39)
[2024-09-11] MEDS: HYDROCORTISONE SOD SUCC 100 MG/2ML INJ VIAL IV SCH (20:42)
[2024-09-11] MEDS: SODIUM BICARB 50mEq/50ml Vial 50 ML in SOD CHL 0.45% 1,000 ML IV SCH (22:01)
[2024-09-12] VITALS (51 sets, daily range): BP systolic 82–125; BP diastolic 43–67; PULSE 78–97; RESP 12–26; TEMP 96.7–98.3; O2SAT 16–100
[2024-09-12 06:06] LABS: Basophils # (auto) 0 10 ^3/uL (0-0.2); Eosinophils # (auto) 0.2 10 ^3/uL (0-0.8); Hemoglobin 7.8 g/dL (12.2-16.2); Monocytes # (auto) 0.2 10 ^3/uL (0-1.3); White Blood Cell 13.7 10^3/uL (4.4-10.8)
[2024-09-12 06:12] LABS: Basophils % (auto) 0.1 % (0.0-2.0); Eosinophils % (auto) 1.5 % (0.0-7.0); Hematocrit 24.9 % (36.0-46.0); Lymphocytes # (auto) 0.4 10 ^3/uL (0.4-5.4); Mean Corpuscular Hemoglobin 24.7 pg (28.0-32.0); Mean Corpuscular Hgb Conc. 31.2 g/dL (32.0-36.0); Mean Corpuscular Volume 79.2 fL (80.0-100.0); Monocytes % (auto) 1.5 % (0.0-12.0); Neutrophils # (auto) 12.9 10 ^3/uL (1.6-8.6); Neutrophils % (auto) 93.9 % (37.0-80.0); Nucleated Red Blood Cells % 0.1 %; Platelet Count (auto) 156 10^3/uL (140-450); Red Blood Cells 3.14 10^6/uL (4.0-5.20); Red Cell Distribution Width 19.8 % (11.8-14.3)
[2024-09-12 06:26] LABS: Alanine Aminotransferase 39 U/L (7-40); Alkaline Phosphatase 110 U/L (46-116); Anion Gap 10 (5-15); BUN/Creatinine Ratio 9.1 (10.0-20.0); Blood Urea Nitrogen 21 mg/dL (9-23); Sodium 137 mmol/L (136-145)
[2024-09-12 06:27] LABS: Lactic Acid w/Reflex 2.1 mmol/L (0.4-2.0); Phosphorus 4.1 mg/dL (2.4-5.1)
[2024-09-12 06:28] LABS: Albumin 2.5 g/dL (3.2-4.8); Aspartate Aminotransferase 76 U/L (13-40); Bilirubin, Total 2.2 mg/dL (0.2-1.0); Calcium 7.5 mg/dL (8.7-10.4); Carbon Dioxide 19 mmol/L (20-31); Chloride 108 mmol/L (98-107); Glucose 110 mg/dL (74-106); Magnesium 1.4 mg/dL (1.6-2.6); Total Protein 4.9 g/dL (5.7-8.2)
--- NOTE | 2024-09-12 07:13 | DVH ---
CHEST RADIOGRAPH Indication: reevaluate lung parenchyma Technique: Single frontal view of the chest was obtained COMPARISON: XY CHEST PORTABLE on DOS: 09/10/24, XY CHEST XRAY 1 VIEW on DOS: 09/10/24, CHEST PORTABLE o n DOS: 10/29/19 FINDINGS: Lines and Tubes: None Lungs: Congestion Pleura: No effusion. No pneumothorax. Cardiomediastinal contours: Cardiomegaly Bones: Unremarkable IMPRESSION: No significant interval change.
[2024-09-12 07:14] LABS: Hypochromia Slight
[2024-09-12 07:15] LABS: Platelet Estimate Adequate
[2024-09-12] MEDS: FUROSEMIDE 20 MG/2 ML VIAL IV SCH (08:28)
--- NOTE | 2024-09-12 08:38 | DVHPNRES ---
Progress Note Date Seen: Sep 12, 2024 Resident Creating Document: IVY MADSEN RESIDENT Has the PT tested + for MRSA If YES, has PT been informed?: No Medical Necessity Reason Pt with a Central, PICC or Fol: Yes The following are medically ne: Velazquez Catheter Subjective Review of Systems This is a 64-year-old female with past medical history of hyperlipidemia, hypothyroidism, vertigo, uterine cancer, status post radiation and hysterectomy in 2020. The patient presented to the ED with chief complaint of altered level of consciousness. Upon admission, the patient was alert and oriented able to answer questions appropriately. Per granddaughter, the patient has been having symptoms for the past week of generalized weakness, dizziness, chills and has recently appear more altered than normal. Granddaughter stated that family noticed that the patient was much more altered recently and even confused her room with a another family members room. They decided to brought her to the emergency for further evaluation. On admission, the patient was having fever, tachycardia and hypotension consistent with septic shock. The patient was started on aggressive IV fluid replacement followed by IV Levophed and phenylephrine. EKG showed sinus tachycardia with prolonged QT interval, initial troponins were slightly elevated and lactic acid was significantly elevated. WBC increased to 32.6k. Patient was admitted for further assessment and management. Patient seen and examined at bedside. This morning, the patient was off vasopressors and saturating 95% on room air. Lactic acid came down from 7.9 to 2.1. Echocardiogram was done which showed a LVEF of 60-65% with mildly dilated right atrium and ventricle. Chest x-ray this morning still showing left basilar opacities. We started furosemide 20 mg IV. We will continue hydrocortisone 100 mg b.i.d., IV Zosyn and doxycycline. Today, BUN and creatinine are still elevated most likely due to the septic shock, nephrology is on board. Patient is currently alert and oriented, responding questions appropriately. The patient is unable to localize or identify any pain in her body at this time. ROS Constitutional: Denies weight loss, fever and chills. HEENT: Denies changes in vision and hearing. Respiratory: Reports mild shortness of breath and mild cough. Cardiovascular: Denies chest discomfort or palpitations GI: Denies abdominal pain, nausea, vomiting and diarrhea. : Denies dysuria and urinary frequency. Musculoskeletal: Denies myalgias and joint pain Skin: Denies rash and pruritus. Neurological: Denies dizziness, headache, vision or hearing problems Objective vital signs Vital Sign Date Time Temp Pulse Resp B/P (MAP) Pulse Ox O2 Delivery O2 Flow Rate FiO2 09/12/24 06:58 100 Nasal Cannula 2.0 09/12/24 06:58 28 09/12/24 06:05 22 09/12/24 06:03 89 09/12/24 05:15 09/12/24 04:15 98.3 98.3 Total Intake and Output 09/11/24 09/11/24 09/12/24 14:59 22:59 06:59 Intake Total 2632.50 ml 2647.50 ml 1394.25 ml Output Total 200 ml 350 ml Balance 2632.50 ml 2447.50 ml 1044.25 ml medications Current Medications Medications Dose Ordered Sig/Lou Route Start Time Stop Time Status Last Admin Dose Admin Norepinephrine Bitartrate 250 ml @ 3.75 mls/hr Q24H IV 09/10/24 04:15 09/12/24 00:09 3.75 MLS/HR Sodium Chloride 10 ml Q8HR IV 09/10/24 14:00 09/12/24 05:04 10 ML Acetaminophen/ Hydrocodone Bitart 1 tab Q4HP PRN PO 09/10/24 10:00 09/11/24 08:37 1 TAB Ondansetron HCl 4 mg Q4HP PRN IV 09/10/24 10:00 09/11/24 08:40 4 MG Docusate Sodium 100 mg BIDPRN PRN PO 09/10/24 10:00 Acetaminophen 650 mg Q6HP PRN PO 09/10/24 10:00 09/11/24 05:21 650 MG Nitroglycerin 0.4 mg Q5MINP PRN SL 09/10/24 10:30 Morphine Sulfate 2 mg Q30M PRN IV 09/10/24 10:30 Sodium Chloride 10 ml QSHIFT@10,22 IV 09/10/24 22:00 09/11/24 20:38 10 ML Doxycycline Hyclate 100 ml @ 50 mls/hr Q12H IV 09/11/24 12:00 09/12/24 00:13 50 MLS/HR Piperacillin Sod/ Tazobactam Sod 100 ml @ 25 mls/hr Q8HR IV 09/11/24 14:00 09/12/24 05:03 25 MLS/HR Hydrocortisone Sodium Succinate 100 mg BID IV 09/11/24 22:00 09/11/24 20:42 100 MG Pantoprazole Sodium 40 mg BID IV 09/11/24 22:00 09/11/24 20:39 40 MG Albuterol 2.5 mg Q6HPRN PRN NEB 09/11/24 12:00 09/11/24 12:29 2.5 MG Ipratropium [place] 0.5 mg Q6HPRN PRN NEB 09/11/24 12:00 09/11/24 12:29 0.5 MG Diphenhydramine HCl 12.5 mg Q4H IV 09/11/24 13:45 09/12/24 05:04 12.5 MG Lorazepam 0.5 mg Q6H IV 09/11/24 13:45 Vasopressin 20 units/Sodium Chloride 100 ml @ 9 mls/hr Q11H7M IV 09/11/24 15:30 09/11/24 15:30 9 MLS/HR Iron Sucrose 110 ml @ 110 mls/hr DAILY@1200 IV 09/11/24 18:57 09/15/24 12:59 09/11/24 20:11 110 MLS/HR Clotrimazole 1 applic Q12HR TOP 09/11/24 22:00 09/11/24 20:38 1 APPLIC Sodium Bicarbonate 50 ml/ Sodium Chloride 1,050 ml @ 125 mls/hr Q8H24M IV 09/11/24 20:15 09/11/24 22:01 125 MLS/HR Furosemide 20 mg DAILY IV 09/12/24 07:00 Examination Physical Examination General: Patient alert and oriented in person, place and time. Patient following commands. HEENT: Normocephalic, atraumatic, moist mucous membranes Respiratory/pulmonary: There are mild crackles in the left lung base, difficult to auscultate due to body habitus. Mild expiratory wheezes. Cardiovascular: Normal heart sounds S1 and S2 with no associated murmurs Abdomen: Abdomen nondistended, there is no pain to palpation in any of the abdominal quadrants, no palpable masses. Extremities: There is no peripheral edema present at the lower extremities. Peripheral Pulses: 3+ Radial (R). 3+ Radial (L). 3+ Dorsalis pedis (R). 3+ Dorsalis pedis(L) Skin: There is a mild rash/erythema at the junction of the hypogastrium and pubis due to the oversized skin. No sacral ulcers at this time. Neurological: Intact cranial nerves with no focal neurologic deficits laboratory and microbiology Laboratory Tests 09/12/24 05:44 Test 09/12/24 05:44 Range/Units Serum Glucose 110 H 74-106 mg/dL Microbiology Date/Time Source Procedure Growth Status 09/11/24 08:00 Stool Clostridium difficile Toxin Assay - Final Complete 09/11/24 03:15 Nose MRSA Screen - Final Complete 09/10/24 06:35 Blood Blood Culture - Preliminary NO GROWTH AFTER 48 HOURS OF INCUBATION. Resulted 09/10/24 01:52 Voided Urine Urine Culture - Preliminary Resulted Problem List/Assessment/Plan Problem List/Assessment/Plan Assessment/plan Septic shock, of unknown source Possible atypical pneumonia/aspiration pneumonia Acute toxic/metabolic encephalopathy Altered level of consciousness likely due to above Lactic acidosis, resolving -currently saturating 99% on 2 L of oxygen through nasal cannula -Lactic acid coming down to 2.1 -Continue IV Zosyn -Continue IV doxycycline -Continue hydrocortisone 100 mg b.i.d. -Will stop fluids -currently OFF pressors, restart levophed at low dose if needed to keep MAP >65mmHg -respiratory therapy with albuterol and ipratropium med nebs -Ordered BIPAP at bedtime NSTEMI likely type 2 due to septic shock -initial troponins were slightly elevated -trend troponin -cardiology on board RENETTA likely due to vasomotor nephropathy in the setting of septic shock -BUN and creatinine were 15 and 2.05 respectively -Stop IV fluids -monitor kidney function Acute microcytic hypochromic Anemia -Hb initially was 9.7, Last 7.8 -ordered iron panel which came back low -ordered ferritin which came back on normal range -stool occult blood test came back positive R/O GI bleed/Mesenteric ischemia -Patient has no abdominal pain -Stool occult was positive and Hg low -F/U H and H Hypomagnesemia -magnesium was 1.4, magnesium replaced to keep at minimum of 2.0 DVT prophylaxys: SCD, no anticoag due to risk of GI bleed GI prophylaxys on Pantoprazole 40mg IV BID ACP, discussed with patietn and granddaughter at bedside for 15 min Goals of care discussed with the patient at bedside, FULL CODE Plan discussed with Dr. Zuniga Plan discussed with: Patient My Orders My Orders Orders - IVY MADSEN Procedure Category Date Status Time Doxycycline PHA 09/11/24 In Process 100mg/100ml 12:00 Piperacillin-Tazob PHA 09/11/24 In Process 3.375gm (Zosyn 3.375g 14:00 Hydrocortisone PHA 09/11/24 In Process Succinate Inj 22:00 Strict I & O LUCIEN 09/11/24 In Process 11:54 BIPAP RT 09/11/24 Logged 15:19 Sodium Chl 0.9% PHA 09/11/24 In Process (So... W/Vasopressin 15:30 Communication Order ORDERS 09/11/24 Transmitted 15:22 Blood Culture CAT 09/11/24 In Process 15:24 Respiratory Culture CAT 09/11/24 Logged W/ Gs 15:24 Abg W/ Co-Ox RT 09/11/24 Logged 18:03 Clotrimazole 1% PHA 09/11/24 In Process Topical Cream 22:00 Chest Xray 1 View XY 09/12/24 Resulted 06:18 Furosemide Injection PHA 09/12/24 In Process (Lasix Injection) 07:00 Date of Service: Sep 12, 2024 Billing Provider: MADELIN ARCOS MD Common Visit Codes: [id number] INP/OBS CARE(HIGH) Secondary Visit Codes: [id number] CARE PLAN 30 MINUTES Coding Comment Comment ACP discussion 31min - full code IVY MADSEN RESIDENT Sep 12, 2024 08:38 MADELIN ARCOS MD Sep 13, 2024 16:00
[2024-09-12] MEDS: MAGNESIUM SULFATE 1GM/100ML 100 ML IV SCH (11:47)
[2024-09-12 12:47] LABS: Hematocrit 25.8 % (36.0-46.0)
--- NOTE | 2024-09-12 15:02 | DVHPN2 ---
Progress Note Date Seen: Sep 12, 2024 Has the PT tested + for MRSA If YES, has PT been informed?: No Medical Necessity Reason Pt with a Central, PICC or Fol: Yes The following are medically ne: Velazquez Catheter Subjective Patient reports: Feels better Objective vital signs Vital Sign Date Time Temp Pulse Resp B/P (MAP) Pulse Ox O2 Delivery O2 Flow Rate FiO2 09/12/24 13:33 18 95 Nasal Cannula* 2 28 09/12/24 13:33 83 09/12/24 13:30 98/49 (65) 09/12/24 12:00 97.0 97.0 Total Intake and Output 09/11/24 09/11/24 09/12/24 15:00 23:00 07:00 Intake Total 2906.25 ml 2496.75 ml 1365.00 ml Output Total 200 ml 350 ml Balance 2906.25 ml 2296.75 ml 1015.00 ml medications Current Medications Medications Dose Ordered Sig/Lou Route Start Time Stop Time Status Last Admin Dose Admin Sodium Chloride 10 ml Q8HR IV 09/10/24 14:00 09/12/24 05:04 10 ML Acetaminophen/ Hydrocodone Bitart 1 tab Q4HP PRN PO 09/10/24 10:00 09/12/24 09:43 1 TAB Ondansetron HCl 4 mg Q4HP PRN IV 09/10/24 10:00 09/11/24 08:40 4 MG Docusate Sodium 100 mg BIDPRN PRN PO 09/10/24 10:00 Acetaminophen 650 mg Q6HP PRN PO 09/10/24 10:00 09/11/24 05:21 650 MG Nitroglycerin 0.4 mg Q5MINP PRN SL 09/10/24 10:30 Morphine Sulfate 2 mg Q30M PRN IV 09/10/24 10:30 Sodium Chloride 10 ml QSHIFT@10,22 IV 09/10/24 22:00 09/12/24 09:34 10 ML Doxycycline Hyclate 100 ml @ 50 mls/hr Q12H IV 09/11/24 12:00 09/12/24 11:47 50 MLS/HR Piperacillin Sod/ Tazobactam Sod 100 ml @ 25 mls/hr Q8HR IV 09/11/24 14:00 09/12/24 05:03 25 MLS/HR Hydrocortisone Sodium Succinate 100 mg BID IV 09/11/24 22:00 09/12/24 09:33 100 MG Pantoprazole Sodium 40 mg BID IV 09/11/24 22:00 09/12/24 09:34 40 MG Albuterol 2.5 mg Q6HPRN PRN NEB 09/11/24 12:00 09/11/24 12:29 2.5 MG Ipratropium [place] 0.5 mg Q6HPRN PRN NEB 09/11/24 12:00 09/11/24 12:29 0.5 MG Diphenhydramine HCl 12.5 mg Q4H IV 09/11/24 13:45 09/12/24 05:04 12.5 MG Lorazepam 0.5 mg Q6H IV 09/11/24 13:45 Iron Sucrose 110 ml @ 110 mls/hr DAILY@1200 IV 09/11/24 18:57 09/15/24 12:59 09/11/24 20:11 110 MLS/HR Clotrimazole 1 applic Q12HR TOP 09/11/24 22:00 09/12/24 11:45 1 APPLIC Furosemide 20 mg DAILY IV 09/12/24 07:00 09/12/24 08:28 20 MG Examination: GENERAL:Normal, LUNGS:Normal, CVS:Normal laboratory and microbiology Laboratory Tests 09/12/24 12:16 09/12/24 05:44 Test 09/12/24 05:44 Range/Units Serum Glucose 110 H 74-106 mg/dL Microbiology Date/Time Source Procedure Growth Status 09/11/24 08:00 Stool Clostridium difficile Toxin Assay - Final Complete 09/11/24 03:15 Nose MRSA Screen - Final Complete 09/10/24 06:35 Blood Blood Culture - Preliminary NO GROWTH AFTER 48 HOURS OF INCUBATION. Resulted 09/10/24 01:52 Voided Urine Urine Culture - Final Complete Problem List/Assessment/Plan Problem List/Assessment/Plan Acute kidney injury hemodynamically mediated in setting of hypotension Septic shock secondary to pneumonia Altered mental status Hypotension Anion gap metabolic acidosis IV fluid hydration Pressors to keep mean arterial pressure greater than 65 Strict Is&Os IV antibiotics broad-spectrum Rest of care as per primary medical team Patient remains critically ill due to high pressor requirements. Critical care time 32 minutes Plan discussed with: Patient My Orders My Orders Orders - DORIS JAUREGUI MD Procedure Category Date Status Time Iron Sucrose Complex PHA 09/11/24 In Process (Venofer) 18:57 DORIS JAUREGUI MD Sep 12, 2024 15:02
--- NOTE | 2024-09-12 18:15 | DVHPN2 ---
Consult Progress Note Subjective Other Systems: Patient now on vasopressors Normal sinus rhythm on manager monitoring Objective vital signs Vital Sign Date Time Temp Pulse Resp B/P (MAP) Pulse Ox O2 Delivery O2 Flow Rate FiO2 09/12/24 17:30 97.4 80 18 104/58 (73) 96 97.4 09/12/24 15:47 Nasal Cannula* 2 28 Total Intake and Output 09/11/24 09/11/24 09/12/24 15:00 23:00 07:00 Intake Total 2906.25 ml 2496.75 ml 1365.00 ml Output Total 200 ml 350 ml Balance 2906.25 ml 2296.75 ml 1015.00 ml medications Current Medications Medications Dose Ordered Sig/Lou Route Start Time Stop Time Status Last Admin Dose Admin Sodium Chloride 10 ml Q8HR IV 09/10/24 14:00 09/12/24 15:09 10 ML Acetaminophen/ Hydrocodone Bitart 1 tab Q4HP PRN PO 09/10/24 10:00 09/12/24 09:43 1 TAB Ondansetron HCl 4 mg Q4HP PRN IV 09/10/24 10:00 09/11/24 08:40 4 MG Docusate Sodium 100 mg BIDPRN PRN PO 09/10/24 10:00 Acetaminophen 650 mg Q6HP PRN PO 09/10/24 10:00 09/11/24 05:21 650 MG Nitroglycerin 0.4 mg Q5MINP PRN SL 09/10/24 10:30 Morphine Sulfate 2 mg Q30M PRN IV 09/10/24 10:30 Sodium Chloride 10 ml QSHIFT@10,22 IV 09/10/24 22:00 09/12/24 09:34 10 ML Doxycycline Hyclate 100 ml @ 50 mls/hr Q12H IV 09/11/24 12:00 09/12/24 11:47 50 MLS/HR Piperacillin Sod/ Tazobactam Sod 100 ml @ 25 mls/hr Q8HR IV 09/11/24 14:00 09/12/24 15:08 25 MLS/HR Hydrocortisone Sodium Succinate 100 mg BID IV 09/11/24 22:00 09/12/24 09:33 100 MG Pantoprazole Sodium 40 mg BID IV 09/11/24 22:00 09/12/24 09:34 40 MG Albuterol 2.5 mg Q6HPRN PRN NEB 09/11/24 12:00 09/11/24 12:29 2.5 MG Ipratropium [place] 0.5 mg Q6HPRN PRN NEB 09/11/24 12:00 09/11/24 12:29 0.5 MG Diphenhydramine HCl 12.5 mg Q4H IV 09/11/24 13:45 09/12/24 05:04 12.5 MG Lorazepam 0.5 mg Q6H IV 09/11/24 13:45 Iron Sucrose 110 ml @ 110 mls/hr DAILY@1200 IV 09/11/24 18:57 09/15/24 12:59 09/12/24 15:06 110 MLS/HR Clotrimazole 1 applic Q12HR TOP 09/11/24 22:00 09/12/24 11:45 1 APPLIC Furosemide 20 mg DAILY IV 09/12/24 07:00 09/12/24 08:28 20 MG Examination: GENERAL:Abnormal (Generalized weakness), LUNGS:Normal, CVS:Normal, NEURO:Normal laboratory and microbiology Laboratory Tests 09/12/24 12:16 09/12/24 05:44 Test 09/12/24 05:44 Range/Units Serum Glucose 110 H 74-106 mg/dL Problem List/Assessment/Plan Problem List/Assessment/Plan Hypotension likely secondary to sepsis NSTEMI, likely type II secondary to septic shock Acute on Chronic HFpEF, NYHA class III Hyperlipidemia Thyroid disease Acute kidney injury Anemia Morbid obesity History of tobacco use Plan/Recommendation (Dr. Sloan): * Echocardiogram reveals EF 60-65% with grade II diastolic dysfunction * GDMT for CHF with improved renal function * Monitor and replete electrolytes as needed * Cardiac surveillance: Notify for any ECG changes * Avoid medications that prolong QT interval, as this puts patient at risk for Torsades de Pointes * Antibiotics per primary care team Patient seen and examined at bedside with . Repeat 12 lead electrocardiogram shows improvement in QT interval duration (now 503). Hypotension now resolved and patient off of all vasopressors. There is no further inpatient cardiac workup indicated at this time. Please reconsult if needed. Thank you for allowing us to care for this patient. Please call with any questions or concerns. This medical document was created using an electronic medical record system with voice recognition software and computerized dictation system. Although this document has been carefully reviewed, there might still be some phonetic and typographical errors. Occasional wrong-word or ``sound-alike substitutions may have occurred due to the inherent limitations of voice recognition software. These areas are purely typographical due to imperfections of the software programs and do not reflect any compromise in the patient's medical care. Please read the chart carefully and recognize, using context, where these substitutions have occurred. Plan discussed with: Patient Date of Service: Sep 12, 2024 Billing Provider: GINETTE SLOAN MD Common Visit Codes: [id number] INP/OBS CARE(HIGH) ALFREDO GONZALEZ SCIENTIFIC DATABASE CURATOR Sep 12, 2024 18:15
[2024-09-12] MEDS ORDERED: SOD CHL 0.45% 1,000 ML IV ONE (22:20)
[2024-09-12] MEDS: SOD CHL 0.45% 1,000 ML IV ONE (23:06)
[2024-09-13] VITALS (9 sets, daily range): BP systolic 85–97; BP diastolic 44–58; PULSE 79–88; RESP 16–19; TEMP 97.2–98.1; O2SAT 94–98
[2024-09-13 06:56] LABS: Basophils # (auto) 0 10 ^3/uL (0-0.2); Basophils % (auto) 0.1 % (0.0-2.0); Eosinophils # (auto) 0 10 ^3/uL (0-0.8); Hemoglobin 8.3 g/dL (12.2-16.2); Mean Corpuscular Hemoglobin 24.6 pg (28.0-32.0); Mean Corpuscular Hgb Conc. 31.9 g/dL (32.0-36.0); Monocytes # (auto) 0.2 10 ^3/uL (0-1.3); Red Blood Cells 3.36 10^6/uL (4.0-5.20)
[2024-09-13 06:57] LABS: Lymphocytes # (auto) 0.5 10 ^3/uL (0.4-5.4); Lymphocytes % (auto) 5.7 % (10.0-50.0); Mean Corpuscular Volume 77.2 fL (80.0-100.0); Monocytes % (auto) 1.8 % (0.0-12.0); Neutrophils # (auto) 8.9 10 ^3/uL (1.6-8.6); Neutrophils % (auto) 92.4 % (37.0-80.0); Platelet Count (auto) 129 10^3/uL (140-450); Red Cell Distribution Width 20.2 % (11.8-14.3); White Blood Cell 9.6 10^3/uL (4.4-10.8)
[2024-09-13 07:17] LABS: Anion Gap 7 (5-15); BUN/Creatinine Ratio 14.2 (10.0-20.0); Carbon Dioxide 23 mmol/L (20-31); Magnesium 1.9 mg/dL (1.6-2.6); Potassium 3.7 mmol/L (3.5-5.1); Sodium 137 mmol/L (136-145)
[2024-09-13 07:18] LABS: Phosphorus 4.1 mg/dL (2.4-5.1)
[2024-09-13 07:19] LABS: Alanine Aminotransferase 50 U/L (7-40); Albumin 2.6 g/dL (3.2-4.8); Alkaline Phosphatase 157 U/L (46-116); Aspartate Aminotransferase 85 U/L (13-40); Bilirubin, Total 1.8 mg/dL (0.2-1.0); Blood Urea Nitrogen 33 mg/dL (9-23); Calcium 8.1 mg/dL (8.7-10.4); Chloride 107 mmol/L (98-107); Glucose 132 mg/dL (74-106)
--- NOTE | 2024-09-13 08:24 | ECG ---
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
--- NOTE | 2024-09-13 09:31 | DVHPNRES ---
Progress Note Date Seen: Sep 13, 2024 Resident Creating Document: IVY MADSEN RESIDENT Has the PT tested + for MRSA If YES, has PT been informed?: No Medical Necessity Reason Pt with a Central, PICC or Fol: Yes The following are medically ne: Velazquez Catheter Subjective Review of Systems This is a 64-year-old female with past medical history of hyperlipidemia, hypothyroidism, vertigo, uterine cancer, status post radiation and hysterectomy in 2020. The patient presented to the ED with chief complaint of altered level of consciousness. Upon admission, the patient was alert and oriented able to answer questions appropriately. Per granddaughter, the patient has been having symptoms for the past week of generalized weakness, dizziness, chills and has recently appear more altered than normal. Granddaughter stated that family noticed that the patient was much more altered recently and even confused her room with a another family members room. They decided to brought her to the emergency for further evaluation. On admission, the patient was having fever, tachycardia and hypotension consistent with septic shock. The patient was started on aggressive IV fluid replacement followed by IV Levophed and phenylephrine. EKG showed sinus tachycardia with prolonged QT interval, initial troponins were slightly elevated and lactic acid was significantly elevated. WBC increased to 32.6k. Patient was admitted for further assessment and management. Patient seen and examined at bedside. Patient is currently off vasopressors at this time, blood pressures in the lower side. Patient is alert and oriented in person, place and time but is still weak and unable to ambulate alone. We will start physical therapy. The patient is currently on IV Zosyn and doxycycline, furosemide 20 mg IV daily and hydrocortisone 100 mg b.i.d.. We will continue this current medical treatment as well as respiratory therapy with albuterol and ipratropium med nebs. Blood culture came back negative, urine cultures are showing contamination. WBC keeps improving but BUN and creatinine are still elevated. Nephrology is on board. We will start midodrine 10 mg t.i.d. for borderline low blood pressure. ROS Constitutional: Reports generalized weakness. Denies weight loss, fever and chills. HEENT: Denies changes in vision and hearing. Respiratory: Denies shortness of breath and cough Cardiovascular: Denies chest discomfort or palpitations GI: Denies abdominal pain, nausea, vomiting and diarrhea. : Denies dysuria and urinary frequency. Musculoskeletal: Denies myalgias and joint pain Skin: Denies rash and pruritus. Neurological: Denies dizziness, headache, vision or hearing problems Objective vital signs Vital Sign Date Time Temp Pulse Resp B/P (MAP) Pulse Ox O2 Delivery O2 Flow Rate FiO2 09/13/24 05:00 97.6 88 16 97/47 (64) 98 97.6 09/12/24 20:00 Nasal Cannula* 2 28 Total Intake and Output 09/12/24 09/12/24 09/13/24 15:00 23:00 07:00 Intake Total 750 ml 550 ml 1580 ml Output Total 650 ml 1045 ml Balance 750 ml -100 ml 535 ml medications Current Medications Medications Dose Ordered Sig/Lou Route Start Time Stop Time Status Last Admin Dose Admin Sodium Chloride 10 ml Q8HR IV 09/10/24 14:00 09/13/24 05:45 10 ML Acetaminophen/ Hydrocodone Bitart 1 tab Q4HP PRN PO 09/10/24 10:00 09/12/24 09:43 1 TAB Ondansetron HCl 4 mg Q4HP PRN IV 09/10/24 10:00 09/11/24 08:40 4 MG Docusate Sodium 100 mg BIDPRN PRN PO 09/10/24 10:00 Acetaminophen 650 mg Q6HP PRN PO 09/10/24 10:00 09/11/24 05:21 650 MG Nitroglycerin 0.4 mg Q5MINP PRN SL 09/10/24 10:30 Morphine Sulfate 2 mg Q30M PRN IV 09/10/24 10:30 Sodium Chloride 10 ml QSHIFT@10,22 IV 09/10/24 22:00 09/12/24 21:11 10 ML Doxycycline Hyclate 100 ml @ 50 mls/hr Q12H IV 09/11/24 12:00 09/12/24 23:07 50 MLS/HR Piperacillin Sod/ Tazobactam Sod 100 ml @ 25 mls/hr Q8HR IV 09/11/24 14:00 09/13/24 05:45 25 MLS/HR Hydrocortisone Sodium Succinate 100 mg BID IV 09/11/24 22:00 09/12/24 21:11 100 MG Pantoprazole Sodium 40 mg BID IV 09/11/24 22:00 09/12/24 21:10 40 MG Albuterol 2.5 mg Q6HPRN PRN NEB 09/11/24 12:00 09/11/24 12:29 2.5 MG Ipratropium [place] 0.5 mg Q6HPRN PRN NEB 09/11/24 12:00 09/11/24 12:29 0.5 MG Diphenhydramine HCl 12.5 mg Q4H IV 09/11/24 13:45 09/12/24 20:45 12.5 MG Lorazepam 0.5 mg Q6H IV 09/11/24 13:45 Iron Sucrose 110 ml @ 110 mls/hr DAILY@1200 IV 09/11/24 18:57 09/15/24 12:59 09/12/24 15:06 110 MLS/HR Clotrimazole 1 applic Q12HR TOP 09/11/24 22:00 09/12/24 21:12 1 APPLIC Furosemide 20 mg DAILY IV 09/12/24 07:00 09/12/24 08:28 20 MG Examination Physical Examination General: Patient alert and oriented in person, place and time. patient reports generalized weakness. Patient following commands. HEENT: Normocephalic, atraumatic, moist mucous membranes Respiratory/pulmonary: There are mild crackles in the left lung base, difficult to auscultate due to body habitus. Mild expiratory wheezes. Cardiovascular: Normal heart sounds S1 and S2 with no associated murmurs Abdomen: Abdomen nondistended, there is no pain to palpation in any of the abdominal quadrants, no palpable masses. Extremities: There is no peripheral edema present at the lower extremities. Peripheral Pulses: 3+ Radial (R). 3+ Radial (L). 3+ Dorsalis pedis (R). 3+ Dorsalis pedis(L) Skin: There is a mild rash/erythema at the junction of the hypogastrium and pubis due to the oversized skin. No sacral ulcers at this time. Neurological: Intact cranial nerves with no focal neurologic deficits laboratory and microbiology Laboratory Tests 09/13/24 06:15 Test 09/13/24 06:15 Range/Units Serum Glucose 132 H 74-106 mg/dL Microbiology Date/Time Source Procedure Growth Status 09/11/24 16:25 Blood Blood Culture - Preliminary NO GROWTH AFTER 24 HOURS OF INCUBATION. Resulted 09/11/24 08:00 Stool Clostridium difficile Toxin Assay - Final Complete 09/11/24 03:15 Nose MRSA Screen - Final Complete 09/10/24 01:52 Voided Urine Urine Culture - Final Complete Problem List/Assessment/Plan Problem List/Assessment/Plan Assessment/plan Septic shock, of unknown source Possible atypical pneumonia/aspiration pneumonia Acute toxic/metabolic encephalopathy Altered level of consciousness likely due to above Lactic acidosis, resolving -currently saturating 99% on 2 L of oxygen through nasal cannula -Lactic acid coming down to 2.1 -Continue IV Zosyn -Continue IV doxycycline -Continue hydrocortisone 100 mg b.i.d. -currently OFF pressors, restart levophed at low dose if needed to keep MAP >65mmHg -respiratory therapy with albuterol and ipratropium med nebs -Ordered BIPAP at bedtime -start midodrine 10 mg t.i.d. NSTEMI likely type 2 due to septic shock -initial troponins were slightly elevated -trend troponin -cardiology on board RENETTA likely due to vasomotor nephropathy in the setting of septic shock -BUN and creatinine were 33 and 2.33 respectively (worsening) -monitor kidney function Acute microcytic hypochromic Anemia -Hb initially was 9.7, Last 8.3 -ordered iron panel which came back low -ordered ferritin which came back on normal range -stool occult blood test came back positive R/O GI bleed/Mesenteric ischemia -Patient has no abdominal pain -Stool occult was positive and Hg low -F/U H and H Fungal cellulitis between hypogastrium and pubic region skin -On nystatin powder Hypomagnesemia -magnesium was 1.9, magnesium replaced to keep at minimum of 2.0 DVT prophylaxys: SCD, no anticoag due to risk of GI bleed GI prophylaxys on Pantoprazole 40mg IV BID Goals of care discussed with the patient at bedside, FULL CODE Plan discussed with Dr. Zuniga Plan discussed with: Patient My Orders My Orders Orders - IVY MADSEN Procedure Category Date Status Time BIPAP RT 09/12/24 Logged 11:24 Date of Service: Sep 13, 2024 Billing Provider: MADELIN ARCOS MD Common Visit Codes: [id number] INP/OBS CARE(HIGH) IVY MADSEN RESIDENT Sep 13, 2024 09:31 MADELIN ARCOS MD Sep 13, 2024 16:23
[2024-09-13] MEDS: MIDODRINE HCL 10 MG TAB PO SCH (12:40)
--- NOTE | 2024-09-13 14:31 | DVHPN2 ---
Progress Note Date Seen: Sep 13, 2024 Has the PT tested + for MRSA If YES, has PT been informed?: No Medical Necessity Reason Pt with a Central, PICC or Fol: Yes The following are medically ne: Velazquez Catheter Subjective Patient reports: Feels better Review of Systems: :Abnormal Objective vital signs Vital Sign Date Time Temp Pulse Resp B/P (MAP) Pulse Ox O2 Delivery O2 Flow Rate FiO2 09/13/24 13:00 97.2 87 18 85/47 (60) 97 97.2 09/13/24 08:00 Nasal Cannula* 2 28 Total Intake and Output 09/12/24 09/12/24 09/13/24 15:00 23:00 07:00 Intake Total 750 ml 550 ml 1580 ml Output Total 650 ml 1045 ml Balance 750 ml -100 ml 535 ml medications Current Medications Medications Dose Ordered Sig/Lou Route Start Time Stop Time Status Last Admin Dose Admin Sodium Chloride 10 ml Q8HR IV 09/10/24 14:00 09/13/24 05:45 10 ML Acetaminophen/ Hydrocodone Bitart 1 tab Q4HP PRN PO 09/10/24 10:00 09/12/24 09:43 1 TAB Ondansetron HCl 4 mg Q4HP PRN IV 09/10/24 10:00 09/11/24 08:40 4 MG Docusate Sodium 100 mg BIDPRN PRN PO 09/10/24 10:00 Acetaminophen 650 mg Q6HP PRN PO 09/10/24 10:00 09/11/24 05:21 650 MG Nitroglycerin 0.4 mg Q5MINP PRN SL 09/10/24 10:30 Morphine Sulfate 2 mg Q30M PRN IV 09/10/24 10:30 Sodium Chloride 10 ml QSHIFT@10,22 IV 09/10/24 22:00 09/13/24 09:51 10 ML Doxycycline Hyclate 100 ml @ 50 mls/hr Q12H IV 09/11/24 12:00 09/13/24 12:41 50 MLS/HR Piperacillin Sod/ Tazobactam Sod 100 ml @ 25 mls/hr Q8HR IV 09/11/24 14:00 09/13/24 05:45 25 MLS/HR Hydrocortisone Sodium Succinate 100 mg BID IV 09/11/24 22:00 09/13/24 09:42 100 MG Pantoprazole Sodium 40 mg BID IV 09/11/24 22:00 09/13/24 09:42 40 MG Albuterol 2.5 mg Q6HPRN PRN NEB 09/11/24 12:00 09/11/24 12:29 2.5 MG Ipratropium [place] 0.5 mg Q6HPRN PRN NEB 09/11/24 12:00 09/11/24 12:29 0.5 MG Diphenhydramine HCl 12.5 mg Q4H IV 09/11/24 13:45 09/12/24 20:45 12.5 MG Lorazepam 0.5 mg Q6H IV 09/11/24 13:45 Iron Sucrose 110 ml @ 110 mls/hr DAILY@1200 IV 09/11/24 18:57 09/15/24 12:59 09/13/24 12:41 110 MLS/HR Furosemide 20 mg DAILY IV 09/12/24 07:00 09/12/24 08:28 20 MG Nystatin 1 applic BID TOP 09/13/24 10:00 Midodrine 10 mg TID@0600,1200,1800 PO 09/13/24 12:00 09/13/24 12:40 10 MG Examination: GENERAL:Abnormal, LUNGS:Abnormal, ABDOMEN:Abnormal, :Abnormal laboratory and microbiology Laboratory Tests 09/13/24 06:15 Test 09/13/24 06:15 Range/Units Serum Glucose 132 H 74-106 mg/dL Microbiology Date/Time Source Procedure Growth Status 09/11/24 16:25 Blood Blood Culture - Preliminary NO GROWTH AFTER 24 HOURS OF INCUBATION. Resulted 09/11/24 08:00 Stool Clostridium difficile Toxin Assay - Final Complete 09/11/24 03:15 Nose MRSA Screen - Final Complete 09/10/24 01:52 Voided Urine Urine Culture - Final Complete Problem List/Assessment/Plan Problem List/Assessment/Plan Acute kidney injury hemodynamically mediated in setting of hypotension Septic shock secondary to pneumonia Altered mental status Hypotension Anion gap metabolic acidosis anemia IV iron replacement lasix low dose started and UOP has improved Strict Is&Os IV antibiotics broad-spectrum Rest of care as per primary medical team , cr has plateau, she is off pressors Plan discussed with: Patient DORIS JAUREGUI MD Sep 13, 2024 14:31
[2024-09-13] MEDS: NYSTATIN TOPICAL POWDER 15GM TOP SCH (14:51)
[2024-09-13] MEDS ORDERED: guaiFENesin-CODEINE Liq 5 ML UD PO PRN (17:45)
[2024-09-13] MEDS: guaiFENesin 200 MG/10 ML UD PO PRN (22:39)
[2024-09-14] VITALS (14 sets, daily range): BP systolic 86–116; BP diastolic 42–86; PULSE 63–91; RESP 16–18; TEMP 96.7–98.6; O2SAT 92–100
--- NOTE | 2024-09-14 06:52 | DVHPNRES ---
Progress Note Date Seen: Sep 14, 2024 Resident Creating Document: IVY MADSEN RESIDENT Has the PT tested + for MRSA If YES, has PT been informed?: No Medical Necessity Reason Pt with a Central, PICC or Fol: Yes The following are medically ne: Velazquez Catheter Subjective Review of Systems This is a 64-year-old female with past medical history of hyperlipidemia, hypothyroidism, vertigo, uterine cancer, status post radiation and hysterectomy in 2020. The patient presented to the ED with chief complaint of altered level of consciousness. Upon admission, the patient was alert and oriented able to answer questions appropriately. Per granddaughter, the patient has been having symptoms for the past week of generalized weakness, dizziness, chills and has recently appear more altered than normal. Granddaughter stated that family noticed that the patient was much more altered recently and even confused her room with a another family members room. They decided to brought her to the emergency for further evaluation. On admission, the patient was having fever, tachycardia and hypotension consistent with septic shock. The patient was started on aggressive IV fluid replacement followed by IV Levophed and phenylephrine. EKG showed sinus tachycardia with prolonged QT interval, initial troponins were slightly elevated and lactic acid was significantly elevated. WBC increased to 32.6k. Patient was admitted for further assessment and management. Patient seen and examined at bedside. Patient was on BiPAP during night, the patient states that he is feeling much better compared to admission but still feels weak and reports a lot of cough. Guaifenesin dextromethorphan was prescribed to control cough symptoms. Encouraged the patient to ambulate as tolerated and work with physical therapy to regain muscle strength. We started the patient yesterday on midodrine 10 mg t.i.d. due to blood pressure running consistently in the lower side. Patient is currently on IV doxycycline and Zosyn. We will continue hydrocortisone 100 mg b.i.d. complete at least five days. We will discontinue Ativan and Benadryl since the patient is not having any nausea or agitation at this time. We will also repeat an EKG to remeasure QT prolongation. ROS Constitutional: Reports generalized weakness. Denies weight loss, fever and chills. HEENT: Denies changes in vision and hearing. Respiratory: Reports cough. Denies shortness of breath. Cardiovascular: Denies chest discomfort or palpitations GI: Denies abdominal pain, nausea, vomiting and diarrhea. : Denies dysuria and urinary frequency. Musculoskeletal: Denies myalgias and joint pain Skin: Denies rash and pruritus. Neurological: Denies dizziness, headache, vision or hearing problems Objective vital signs Vital Sign Date Time Temp Pulse Resp B/P (MAP) Pulse Ox O2 Delivery O2 Flow Rate FiO2 09/14/24 05:00 97.4 78 18 98/52 (67) 98 97.4 09/14/24 02:09 Facial BiPAP Mask 30 09/13/24 20:00 2 Total Intake and Output 09/13/24 09/13/24 09/14/24 14:59 22:59 06:59 Intake Total 240 ml 1150 ml 200 ml Output Total 520 ml 1100 ml 950 ml Balance -280 ml 50 ml -750 ml medications Current Medications Medications Dose Ordered Sig/Lou Route Start Time Stop Time Status Last Admin Dose Admin Sodium Chloride 10 ml Q8HR IV 09/10/24 14:00 09/14/24 05:53 10 ML Acetaminophen/ Hydrocodone Bitart 1 tab Q4HP PRN PO 09/10/24 10:00 09/12/24 09:43 1 TAB Ondansetron HCl 4 mg Q4HP PRN IV 09/10/24 10:00 09/11/24 08:40 4 MG Docusate Sodium 100 mg BIDPRN PRN PO 09/10/24 10:00 Acetaminophen 650 mg Q6HP PRN PO 09/10/24 10:00 09/11/24 05:21 650 MG Nitroglycerin 0.4 mg Q5MINP PRN SL 09/10/24 10:30 Morphine Sulfate 2 mg Q30M PRN IV 09/10/24 10:30 Sodium Chloride 10 ml QSHIFT@10,22 IV 09/10/24 22:00 09/13/24 09:51 10 ML Doxycycline Hyclate 100 ml @ 50 mls/hr Q12H IV 09/11/24 12:00 09/14/24 00:18 50 MLS/HR Piperacillin Sod/ Tazobactam Sod 100 ml @ 25 mls/hr Q8HR IV 09/11/24 14:00 09/14/24 06:00 25 MLS/HR Hydrocortisone Sodium Succinate 100 mg BID IV 09/11/24 22:00 09/13/24 22:45 100 MG Pantoprazole Sodium 40 mg BID IV 09/11/24 22:00 09/13/24 22:46 40 MG Albuterol 2.5 mg Q6HPRN PRN NEB 09/11/24 12:00 09/11/24 12:29 2.5 MG Ipratropium Roy 0.5 mg Q6HPRN PRN NEB 09/11/24 12:00 09/11/24 12:29 0.5 MG Diphenhydramine HCl 12.5 mg Q4H IV 09/11/24 13:45 09/14/24 05:54 12.5 MG Lorazepam 0.5 mg Q6H IV 09/11/24 13:45 Iron Sucrose 110 ml @ 110 mls/hr DAILY@1200 IV 09/11/24 18:57 09/15/24 12:59 09/13/24 12:41 110 MLS/HR Furosemide 20 mg DAILY IV 09/12/24 07:00 09/12/24 08:28 20 MG Nystatin 1 applic BID TOP 09/13/24 10:00 09/13/24 22:48 1 APPLIC Midodrine 10 mg TID@0600,1200,1800 PO 09/13/24 12:00 09/14/24 05:52 10 MG Guaifenesin 200 mg Q4HP PRN PO 09/13/24 18:30 09/14/24 06:05 200 MG Examination Physical Examination General: Patient alert and oriented in person, place and time. patient reports generalized weakness. Patient following commands. HEENT: Normocephalic, atraumatic, moist mucous membranes Respiratory/pulmonary: There are mild crackles in the left lung base, difficult to auscultate due to body habitus. Patient is having persistent cough. Cardiovascular: Normal heart sounds S1 and S2 with no associated murmurs Abdomen: Abdomen nondistended, there is no pain to palpation in any of the abdominal quadrants, no palpable masses. Extremities: There is no peripheral edema present at the lower extremities. Peripheral Pulses: 3+ Radial (R). 3+ Radial (L). 3+ Dorsalis pedis (R). 3+ Dorsalis pedis(L) Skin: There is a mild rash/erythema at the junction of the hypogastrium and pubis due to the oversized skin. No sacral ulcers at this time. Neurological: Intact cranial nerves with no focal neurologic deficits laboratory and microbiology Laboratory Tests 09/13/24 06:15 Test 09/13/24 06:15 Range/Units Serum Glucose 132 H 74-106 mg/dL Microbiology Date/Time Source Procedure Growth Status 09/11/24 16:25 Blood Blood Culture - Preliminary NO GROWTH AFTER 48 HOURS OF INCUBATION. Resulted 09/11/24 08:00 Stool Clostridium difficile Toxin Assay - Final Complete 09/11/24 03:15 Nose MRSA Screen - Final Complete 09/10/24 01:52 Voided Urine Urine Culture - Final Complete Problem List/Assessment/Plan Problem List/Assessment/Plan Assessment/plan Septic shock, of unknown source Possible atypical pneumonia/aspiration pneumonia Acute toxic/metabolic encephalopathy Altered level of consciousness likely due to above Lactic acidosis, resolving -currently saturating 99% on 2 L of oxygen through nasal cannula -Lactic acid coming down to 2.1 -Continue IV Zosyn -Continue IV doxycycline -Continue hydrocortisone 100 mg b.i.d. -currently OFF pressors, restart levophed at low dose if needed to keep MAP >65mmHg -respiratory therapy with albuterol and ipratropium med nebs -Ordered BIPAP at bedtime -Continue midodrine 10 mg t.i.d. NSTEMI likely type 2 due to septic shock -initial troponins were slightly elevated -Repeat EKG to measure QT -trend troponin -cardiology on board R[facility]ETTA likely due to vasomotor nephropathy in the setting of septic shock -BUN and creatinine were 33 and 2.33 respectively (worsening) -monitor kidney function Acute microcytic hypochromic Anemia -Hb initially was 9.7, Last 8.3 -ordered iron panel which came back low -ordered ferritin which came back on normal range -stool occult blood test came back positive R/O GI bleed/Mesenteric ischemia -Patient has no abdominal pain -Stool occult was positive and Hg low -F/U H and H Fungal cellulitis between hypogastrium and pubic region skin -On nystatin powder PENELOPE BID Hypomagnesemia, corrected -magnesium was 2.2, magnesium replaced to keep at minimum of 2.0 DVT prophylaxys: SCD, no anticoag due to risk of GI bleed GI prophylaxys on Pantoprazole 40mg IV BID Goals of care discussed with the patient at bedside, FULL CODE Plan discussed with Dr. Aziz Plan discussed with: Patient My Orders My Orders Orders - IVY MADSEN Procedure Category Date Status Time Pt Request For Service PT 09/13/24 Logged 09:18 Nystatin Powder PHA 09/13/24 In Process (Mycostatin Powder) 10:00 Midodrine Tablet PHA 09/13/24 In Process (Proamatine Tablet) 12:00 Complete Blood Count LAB 09/14/24 Logged 04:00 Comprehensive LAB 09/14/24 Logged Metabolic Panel 04:00 Magnesium LAB 09/14/24 Logged 04:00 Phosphorus LAB 09/14/24 Logged 04:00 * Wound Consult CONS 09/13/24 Transmitted * Dietary Consult CONS 09/13/24 Transmitted 15:36 Dietary Evaluation Review Comments: remain on cardiac 2 g na low fat Low cholesterol diet, considder Renal specific diet with 50g protein restriction if pt's kideny function does not recover. Expected Outcomes/Goals: grauda weight loss Date of Service: Sep 14, 2024 Billing Provider: MADELIN ARCOS MD Common Visit Codes: [id number] INP/OBS CARE(HIGH) IVY MADSEN RESIDENT Sep 14, 2024 06:52 MADELIN ARCOS MD Sep 17, 2024 16:30
[2024-09-14 07:30] LABS: Basophils # (auto) 0 10 ^3/uL (0-0.2); Basophils % (auto) 0.1 % (0.0-2.0); Eosinophils # (auto) 0 10 ^3/uL (0-0.8); Hematocrit 26.8 % (36.0-46.0); Hemoglobin 8.6 g/dL (12.2-16.2); Lymphocytes # (auto) 0.7 10 ^3/uL (0.4-5.4); Lymphocytes % (auto) 10.6 % (10.0-50.0); Mean Corpuscular Hemoglobin 24.5 pg (28.0-32.0); Mean Corpuscular Volume 76.5 fL (80.0-100.0); Monocytes # (auto) 0.3 10 ^3/uL (0-1.3); Monocytes % (auto) 4.7 % (0.0-12.0); Neutrophils # (auto) 5.7 10 ^3/uL (1.6-8.6); Neutrophils % (auto) 84.6 % (37.0-80.0); Nucleated Red Blood Cells % 0.1 %; Platelet Count (auto) 123 10^3/uL (140-450); Red Cell Distribution Width 19.9 % (11.8-14.3); White Blood Cell 6.7 10^3/uL (4.4-10.8)
[2024-09-14 07:43] LABS: Anion Gap 8 (5-15); BUN/Creatinine Ratio 17.1 (10.0-20.0); Carbon Dioxide 22 mmol/L (20-31); Magnesium 2.2 mg/dL (1.6-2.6); Potassium 3.7 mmol/L (3.5-5.1); Sodium 140 mmol/L (136-145)
[2024-09-14 07:44] LABS: Phosphorus 3.4 mg/dL (2.4-5.1)
[2024-09-14 07:51] LABS: Alanine Aminotransferase 44 U/L (7-40); Albumin 2.7 g/dL (3.2-4.8); Alkaline Phosphatase 198 U/L (46-116); Aspartate Aminotransferase 55 U/L (13-40); Blood Urea Nitrogen 34 mg/dL (9-23); Calcium 8.7 mg/dL (8.7-10.4); Chloride 110 mmol/L (98-107); Glucose 129 mg/dL (74-106); Total Protein 5.1 g/dL (5.7-8.2)
[2024-09-15] VITALS (7 sets, daily range): BP systolic 95–116; BP diastolic 47–56; PULSE 64–80; RESP 16–19; TEMP 97–97.5; O2SAT 97–99
[2024-09-15 06:54] LABS: Anion Gap 8 (5-15); BUN/Creatinine Ratio 19.5 (10.0-20.0); Bilirubin, Total 0.9 mg/dL (0.2-1.0); Calcium 8.9 mg/dL (8.7-10.4); Carbon Dioxide 24 mmol/L (20-31); Magnesium 2.1 mg/dL (1.6-2.6); Phosphorus 3.2 mg/dL (2.4-5.1); Potassium 3.6 mmol/L (3.5-5.1); Sodium 143 mmol/L (136-145)
[2024-09-15 06:58] LABS: Alanine Aminotransferase 42 U/L (7-40); Albumin 2.8 g/dL (3.2-4.8); Alkaline Phosphatase 214 U/L (46-116); Aspartate Aminotransferase 43 U/L (13-40); Blood Urea Nitrogen 32 mg/dL (9-23); Chloride 111 mmol/L (98-107); Glucose 123 mg/dL (74-106); Total Protein 5.3 g/dL (5.7-8.2)
[2024-09-15] MEDS ORDERED: DOXY100C79 PO (13:04)
[2024-09-15] MEDS ORDERED: MIDO10TA10 PO (13:05)
--- NOTE | 2024-09-15 13:16 | DVHDSRES ---
Discharge Summary Date of Admission Resident Creating Document: IVY MADSEN RESIDENT Sep 10, 2024 at 10:18 Date of Discharge: Sep 15, 2024 Admitting Diagnosis Altered level of consciousness Wounds: No wounds present at this time. Labs/Diagnostic Data: Laboratory Results Test 09/15/24 05:12 09/14/24 06:45 09/12/24 10:32 09/12/24 05:44 Sodium Level 143 mmol/L (136-145) Potassium Level 3.6 mmol/L (3.5-5.1) Chloride Level 111 mmol/L (98-107) Carbon Dioxide Level 24 mmol/L (20-31) Anion Gap 8 (5-15) Blood Urea Nitrogen 32 mg/dL (9-23) Creatinine 1.64 mg/dL (0.550-1.02) Glomerular Filtration Rate Calc 34 mL/min (>90) BUN/Creatinine Ratio 19.5 (10.0-20.0) Serum Glucose 123 mg/dL (74-106) Calcium Level 8.9 mg/dL (8.7-10.4) Phosphorus Level 3.2 mg/dL (2.4-5.1) Magnesium Level 2.1 mg/dL (1.6-2.6) Total Bilirubin 0.9 mg/dL (0.2-1.0) Aspartate Amino Transferase (AST) 43 U/L (13-40) Alanine Aminotransferase (ALT) 42 U/L (7-40) Alkaline Phosphatase 214 U/L (46-116) Total Protein 5.3 g/dL (5.7-8.2) Albumin 2.8 g/dL (3.2-4.8) White Blood Count 6.7 10^3/uL (4.4-10.8) Red Blood Count 3.50 10^6/uL (4.0-5.20) Hemoglobin 8.6 g/dL (12.2-16.2) Hematocrit 26.8 % (36.0-46.0) Mean Corpuscular Volume 76.5 fL (80.0-100.0) Mean Corpuscular Hemoglobin 24.5 pg (28.0-32.0) Mean Corpuscular Hemoglobin Concent 32.0 g/dL (32.0-36.0) Red Cell Distribution Width 19.9 % (11.8-14.3) Platelet Count 123 10^3/uL (140-450) Mean Platelet Volume 8.9 fL (6.9-10.8) Neutrophils (%) (Auto) 84.6 % (37.0-80.0) Lymphocytes (%) (Auto) 10.6 % (10.0-50.0) Monocytes (%) (Auto) 4.7 % (0.0-12.0) Eosinophils (%) (Auto) 0.0 % (0.0-7.0) Basophils (%) (Auto) 0.1 % (0.0-2.0) Neutrophils # (Auto) 5.7 10 ^3/uL (1.6-8.6) Lymphocytes # (Auto) 0.7 10 ^3/uL (0.4-5.4) Monocytes # (Auto) 0.3 10 ^3/uL (0-1.3) Eosinophils # (Auto) 0 10 ^3/uL (0-0.8) Basophils # (Auto) 0 10 ^3/uL (0-0.2) Nucleated Red Blood Cells 0.1 % Lactic Acid Level 2.0 mmol/L (0.4-2.0) Platelet Estimate Adequate Hypochromasia (manual) Slight Microcytosis Slight Tamar Cells Few Test 09/11/24 18:17 09/11/24 11:04 09/11/24 04:42 09/10/24 18:27 Blood Gas Specimen Type Arterial Blood Gas Sample Site Right radial Blood Gas Patient Temperature 37.0 Arterial Blood Date Drawn [id number] Arterial Blood pH 7.212 (7.350-7.450) Arterial Blood Partial Pressure CO2 32.0 mmHg (32.0-45.0) Arterial Blood Partial Pressure O2 86.4 mmHg (83.0-108.0) Arterial Blood HCO3 12.6 mmol/L (21.0-28.0) Arterial Blood Oxygen Saturation 94.6 % (94.0-98.0) Arterial Blood Base Excess -14.1 mmol/L (-2.0-3.0) Arterial Blood Oxyhemoglobin 93.7 % (94.0-98.0) Arterial Blood Carboxyhemoglobin 0.1 % (0.5-1.5) Arterial Blood Methemoglobin 0.9 % (0.0-1.5) Blaine Test Yes Blood Gas Total Hemoglobin 10.00 g/dL (12.0-16.0) Blood Gas Liter Flow 3.00 Blood Gas Modality Nasal cannula Blood Gas Spontaneous Rate 20 FiO2 % 32.0 Blood Gas Critical Value Read Back Yes Blood Gas Notified Whom Dr. blossom guerrier Blood Gas Notified Time [id number] Blood Gas Notified By [facility] Troponin I High Sensitivity 64 ng/L (</=34) Differential Total Cells Counted 100.0 (100) Neutrophils % (Manual) 62 (37.0-80.0) Band Neutrophils % (Manual) 32 Lymphocytes % (Manual) 3 (10.0-50.0) Monocytes % (Manual) 3 (0-12) Eosinophils % (Manual) 0 (0-7) Basophils % (Manual) 0 (0.0-2.0) Metamyelocytes % (manual) 0 Myelocytes % (Manual) 0 Promyelocytes % (Manual) 0 Blast Cells % (Manual) 0 Reactive Lymphocytes 0 Iron Level 17 ug/dL (50-170) Total Iron Binding Capacity 227 ug/dL (250-425) Percent Iron Saturation 7.5 % (15-50) Ferritin 115.7 ng/mL (10-291) Stool Occult Blood Positive (Negative) Stool Occult Blood Sample #3 (Negative) Stool for White Cells None seen Test 09/10/24 10:21 09/10/24 09:18 09/10/24 03:47 09/10/24 03:13 Prothrombin Time 13.0 sec (9.3-11.8) Prothrombin Time INR 1.25 (0.9-1.15) Activated Partial Thromboplast Time 32.5 SEC (24.5-34.5) POC Glucose 120 mg/dl (70-106) Influenza Type A Antigen Negative (Negative) Influenza Type B Antigen Negative (Negative) SARS-CoV-2 Antigen (Rapid) Negative (NEGATIVE) Thyroid Stimulating Hormone (TSH) 2.07 uIU/mL (0.55-4.78) Test 09/10/24 03:10 09/10/24 01:52 09/10/24 00:44 Ammonia < 10 umol/L (11-32) Urine Color Light-yellow (Yellow) Urine Clarity Turbid (Clear) Urine pH 5.5 (5.0-9.0) Urine Specific [place] 1.011 (1.001-1.035) Urine Protein 1+ (Negative) Urine Ketones Trace (Negative) Urine Blood Negative /uL (Negative) Urine Nitrite Negative (Negative) Urine Bilirubin Negative (Negative) Urine Urobilinogen Normal mg/dL (Negative) Urine Leukocyte Esterase Negative /uL (Negative) Urine RBC 2 /hpf (0 - 4) Urine WBC 5 /hpf (0 - 5) Urine Squamous Epithelial Cells Few /hpf (<5) Urine Amorphous Crystals Few /hpf (None Seen) Urine Bacteria Few /hpf (None Seen) Urine Hyaline Casts Mod /lpf (0 - 2) Urine Mucus Few (None Seen) Urine Glucose Normal mg/dL (Normal) Urine Opiates Screen Neg (NEGATIVE) Urine Fentanyl Screen Neg (NEGATIVE) Urine Barbiturates Screen Neg (NEGATIVE) Urine Phencyclidine Screen Neg (NEGATIVE) Urine Amphetamines Screen Neg (NEGATIVE) Urine Benzodiazepines Screen Neg (NEGATIVE) Urine Cocaine Screen Neg (NEGATIVE) Urine Cannabinoids Screen Neg (NEGATIVE) Anisocytosis (manual) Slight B-Type Natriuretic Peptide 121.28 pg/mL (0-100) Plasma/Serum Blood Alcohol < 3.0 mg/dL (<10) Other Laboratory Tests 09/15/24 05:12 09/14/24 06:45 Brief Hx & Hospital Course: This is a 64-year-old female with past medical history of hyperlipidemia, hypothyroidism, vertigo, uterine cancer, status post radiation and hysterectomy in 2020. The patient presented to the ED with chief complaint of altered level of consciousness. Upon admission, the patient was alert and oriented able to answer questions appropriately. Per granddaughter, the patient has been having symptoms for the past week of generalized weakness, dizziness, chills and has recently appear more altered than normal. Granddaughter stated that family noticed that the patient was much more altered recently and even confused her room with a another family members room. They decided to brought her to the emergency for further evaluation. On admission, the patient was having fever, tachycardia and hypotension consistent with septic shock. The patient was started on aggressive IV fluid replacement followed by IV Levophed and phenylephrine. EKG showed sinus tachycardia with prolonged QT interval, initial troponins were slightly elevated and lactic acid was significantly elevated. WBC increased to 32.6k. The patient was initially started on IV Zosyn and doxycycline. We also started nystatin powder for a possible fungal cellulitis in junction of the hypogastrium with the pubic area. Hydrocortisone 100 mg b.i.d. was started as well for septic shock. WBC started to improve progressively. Blood cultures and urine cultures came back negative and contaminated respectively. Midodrine 10 mg t.i.d. was started due to persistent blood pressure running in the lower side. Patient also started working with physical therapy due to generalized weakness and fatigue. Today, patient was seen and examined at bedside. Patient was on room air saturating 94% without shortness of breath, chest pain, fever/chills or any other symptoms. We will discharge the patient on doxycycline 100 mg b.i.d. for five days. We will also continue midodrine 10 mg t.i.d. as an outpatient to maintain blood pressure on normal levels. We explained the importance of following up closely with her PCP to ensure that blood pressure is on normal range and determine the need to continue or discontinue midodrine at that time. Patient agrees and understands the plan. Admitting diagnosis: Septic shock with altered level of consciousness. Discharge plan -doxycycline 100 mg b.i.d. for five days -continue on midodrine 10 mg t.i.d. p.o. due to persistent low blood pressure -follow-up closely with her PCP. Consults/Reason for consult N/A Operations or Procedures Examination: CXR1 Clinical Indication: septic Comparison: None. Technique: Frontal radiograph of the chest was obtained. Findings: Limited evaluation, as the patient is in rotation and due to patients body habitus. Inhomogeneous radiopacities in right mid and both lower lungs, suggestive of patchy consolidations. Blunting of the bilateral costophrenic angles, suggestive of bilateral pleural effusions. There is no pneumothorax. Mild cardiomegaly. Ectatic thoracic aorta. Mild superior mediastinal widening. No acute osseous abnormality is seen. Impression: 1. Limited evaluation, as the patient is in rotation and due to patients body habitus. 2. Patchy consolidations in the right mid and both lower lungs. 3. Bilateral pleural effusions. Mild cardiomegaly. 4. Mild superior mediastinal widening. Examination: CTCAP CLINICAL INDICATION: Sepsis. COMPARISON: None. CONTRAST USED: None. TECHNIQUE: A plain CT study of the chest abdomen and pelvis is performed after administration of intravenous contrast medium. The examination was performed with 5 mm thin slices. Multiplanar reconstructions were obtained. CT scan done according to ALARA (As Low As Reasonably Achievable). FINDINGS: Lower neck and thyroid: Unremarkable Lungs and pleura: The pulmonary parenchyma does not show any significant abnormality. No pulmonary nodules are detected. Mediastinum and great vessels: The trachea and the mainstem bronchi are normal. No significant mediastinal lymphadenopathy is detected. The mediastinal vasculature appears normal. Pleural spaces are clear. Heart is normal in size. No pericardial effusion. Small sliding hiatus hernia is seen. Chest wall and Axillae: Unremarkable. CT ABDOMEN: Liver: The liver is normal in size. Small calcified granuloma is seen in segment of liver. The portal venous radicles are normal. There is no intrahepatic biliary radicle dilatation. Gallbladder: The gallbladder is not visualized (post operative status). Common bile duct stent is seen in place. No pneumobilia. Pancreas: The pancreas is normal in size and shape. No focal lesion is seen within. The peripancreatic fat-planes are normal. Spleen: The spleen is normal in size and does not show any focal abnormality. Retroperitoneum: Both adrenal glands are normal in size and morphology. There is no significant retroperitoneal lymphadenopathy. The kidneys are normal in size with no hydronephrosis. Non-obstructive calculus measuring 2 mm is seen in the upper pole of right kidney. Probable prominent left renal pelvis. Parapelvic cyst is seen. Suggest CT urography correlation. Vessels: Aorta, IVC and the mesenteric vessels appear normal. Stomach and bowel: The bowel loops are unremarkable. There is no ascites. Skeletal system: Degenerative changes are seen involving the spine in the form of marginal osteophytes. Grade I anterolisthesis of L3 on L4 vertebra is seen. CT PELVIS: Appendix: The appendix is unremarkable in appearance. Colon: The ascending, transverse, descending, sigmoid colon and rectum are unremarkable. Bladder: The urinary bladder is empty with Foleys catheter seen in the lumen. Uterus and ovaries: Post-hysterectomy status. No adnexal pathology. No abnormal fluid collection is seen. No pelvic lymphadenopathy is identified. IMPRESSION: 1. The pulmonary parenchyma does not show any significant abnormality. 2. Non-obstructive calculus measuring 2 mm is seen in the upper pole of right kidney. 3. Probable prominent left renal pelvis. Parapelvic cyst is seen. Suggest CT urography correlation. 4. No abdominal mass or adenopathy 5. No ascites. 6. No free air or inflammatory changes. 7. Additional chronic and/or ancillary findings as detailed above. 8. Suggest clinical correlation and follow-up as clinically deemed necessary Examination: HWOCT CLINICAL INDICATION: ams COMPARISON: None. CONTRAST USED: Intravenous. TECHNIQUE: The examination was performed obtaining 5 mm slices without contrast. Multiplanar reconstructions were obtained. CT scan done according to ALARA (As Low As Reasonably Achievable). FINDINGS: SUPRATENTORIAL BRAIN: Motion artefacts are seen compromising image quality limiting evaluation. Cerebral Hemispheres: There is no midline shift or mass effect, intra or extra- axial fluid collections or hemorrhage. Periventricular White Matter/Basal Ganglia: No abnormal areas of altered attenuation within the periventricular white matter or basal ganglia. POSTERIOR FOSSA: The brainstem is normal and the visualized cerebellar hemispheres are unremarkable. VENTRICULAR SYSTEM: Generalized prominence of the ventricular system, cisterns, sulcal spaces and cerebellar foliae is seen, suggestive of age-related cortico- cerebral and cerebellar atrophy. There is no evidence of hydrocephalus or transependymal flow of cerebrospinal fluid. SKULL BASE AND PARASELLAR REGION: The skull base is normal with no parasellar masses or abnormalities identified. CALVARIUM AND SCALP REGION: No abnormality is seen. PARANASAL SINUSES: No significant inflammatory changes are identified in the paranasal sinuses. IMPRESSION: 1. Mild age-related cortico-cerebral and cerebellar atrophy. 2. No acute infarct or space occupying lesion is seen. 3. No intracranial hemorrhage or calvarial fracture. 4. Suggest MRI brain correlation if clinically deemed necessary. CHEST RADIOGRAPH Indication: reevaluate lung parenchyma Technique: Single frontal view of the chest was obtained COMPARISON: XY CHEST PORTABLE on DOS: 09/10/24, XY CHEST XRAY 1 VIEW on DOS: 09/10/24, CHEST PORTABLE on DOS: 10/29/19 FINDINGS: Lines and Tubes: None Lungs: Congestion Pleura: No effusion. No pneumothorax. Cardiomediastinal contours: Cardiomegaly Bones: Unremarkable IMPRESSION: No significant interval change. Condition at Discharge: Good Final Diagnosis/Problems List Septic shock, possible aspiration pneumonia Possible atypical pneumonia/aspiration pneumonia Acute toxic/metabolic encephalopathy Altered level of consciousness likely due to above Lactic acidosis, resolved NSTEMI likely type 2 due to septic shock RENETTA likely due to vasomotor nephropathy in the setting of septic shock Acute microcytic hypochromic Anemia R/O GI bleed/Mesenteric ischemia Fungal cellulitis between hypogastrium and pubic region skin Hypomagnesemia, corrected Discharge Disposition: Home Discharge Instruct/Medications Diet: Regular Activity: No Restrictions, As Tolerated Follow Up/Referral: F/U with her PCP in 1 week Medications: Doxycycline 100mg BID for 5 days Discharge Statement: "Patient was advised to return to the ER or call 911 if any headaches, dizziness, shortness of breath, chest pain, abdominal pain, bleeding, fevers, or worsening of medical condition. Patient was counseled about treatment plan, medications, possible side effects, patientverbalized understanding. All questions were answered to the best of my ability. This discharge took greater then 30 minutes in planning, reviewing documentation, counseling the patient, and discussing with other team members." ASSESSMENT ASSESSMENT Assessment Septic shock, possible aspiration pneumonia Possible atypical pneumonia/aspiration pneumonia Acute toxic/metabolic encephalopathy Altered level of consciousness likely due to above Lactic acidosis, resolved NSTEMI likely type 2 due to septic shock RENETTA likely due to vasomotor nephropathy in the setting of septic shock Acute microcytic hypochromic Anemia R/O GI bleed/Mesenteric ischemia Fungal cellulitis between hypogastrium and pubic region skin Hypomagnesemia, corrected IVY MADSEN RESIDENT Sep 15, 2024 13:16
[2024-09-15 14:49] LABS: Base Excess -2.2 mmol/L (-2.0-3.0)
== END 2024-09-15 16:55 | disposition home or self-care (01) | DRG 871 ==
LOC: EDBD 22:53 → ER 22:53 → OVERFLOW 09-10 10:18 → TELE-EAST 09-12 17:14
PROVIDERS: ADMIT Student in an Organized Health Care Education/Training Program; ATTEND Student in an Organized Health Care Education/Training Program
PROC: 02HV33Z Insertion of Infusion Device into Superior Vena Cava, Percutaneous Approach (ICD-10-PCS; principal; 2024-09-10)
PROC: B548ZZA Ultrasonography of Superior Vena Cava, Guidance (ICD-10-PCS; 2024-09-10)
PROC: 05HY33Z Insertion of Infusion Device into Upper Vein, Percutaneous Approach (ICD-10-PCS; 2024-09-10)
PROC: B54NZZA Ultrasonography of Left Upper Extremity Veins, Guidance (ICD-10-PCS; 2024-09-10)
PROC: 5A09357 Assistance with Respiratory Ventilation, Less than 24 Consecutive Hours, Continuous Positive Airway Pressure (ICD-10-PCS; 2024-09-11)
PROC: 5A09357 Assistance with Respiratory Ventilation, Less than 24 Consecutive Hours, Continuous Positive Airway Pressure (ICD-10-PCS; 2024-09-13)
PROC: 5A09357 Assistance with Respiratory Ventilation, Less than 24 Consecutive Hours, Continuous Positive Airway Pressure (ICD-10-PCS; 2024-09-14)
DX: A41.9 Sepsis, unspecified organism (principal); G92.8 Other toxic encephalopathy; R57.1 Hypovolemic shock; I21.A1 Myocardial infarction type 2; I50.33 Acute on chronic diastolic (congestive) heart failure; R65.21 Severe sepsis with septic shock; J69.0 Pneumonitis due to inhalation of food and vomit; N17.0 Acute kidney failure with tubular necrosis; K55.059 Acute (reversible) ischemia of intestine, part and extent unspecified; J90 Pleural effusion, not elsewhere classified; E87.20 Acidosis, unspecified; L03.818 Cellulitis of other sites; K92.2 Gastrointestinal hemorrhage, unspecified; Z20.822 Contact with and (suspected) exposure to COVID-19; E03.9 Hypothyroidism, unspecified; E66.01 Morbid (severe) obesity due to excess calories; E78.5 Hyperlipidemia, unspecified; F17.210 Nicotine dependence, cigarettes, uncomplicated; D50.9 Iron deficiency anemia, unspecified; E83.42 Hypomagnesemia; Z78.1 Physical restraint status; Z90.49 Acquired absence of other specified parts of digestive tract; Z90.710 Acquired absence of both cervix and uterus; Z85.42 Personal history of malignant neoplasm of other parts of uterus; Z92.3 Personal history of irradiation; Z68.33 Body mass index [BMI] 33.0-33.9, adult
CPT/HCPCS: 36415; 36569; 36600; 70450; 71045; 71250; 74176; 80048; 80053; 80307; 80320; 81001; 82140; 82270; 82728; 82805; 82962; 83540; 83550; 83605; 83735; 83880; 84100; 84443; 84484; 85007; 85014; 85018; 85025; 85027; 85048; 85610; 85730; 86850; 86900; 86901; 87040; 87045; 87081; 87086; 87426; 87427; 87493; 87804; 93005; 93306; 94640; 94660; 97116; 97163; 97530; G0378; J0131; J1756; J1885; J1956; J2250; J2405; J2470; J2543

== ENCOUNTER 2025-08-14 08:05 | Outpatient (CLI) | payer MEDICARE, MEDICAID ==
[~2025-08-14] VITALS: Ht 165.1 cm; Wt 108.4 kg
[~2025-08-14 08:05] MED LIST: DOXY100C79 PO; MIDO10TA10 PO
[2025-08-14] MEDS ORDERED: ADENOSINE 90 MG/30 ML INJ IV ONE (08:47)
[2025-08-14] MEDS ORDERED: ADENOSINE 91 MG in GIVE UN-DILUTED 0 ML IV ONE (11:30)
== END 2025-08-14 17:00 | disposition home or self-care (01) ==
LOC: Rad HDHVI 08:05
PROVIDERS: ATTEND Internal Medicine Cardiovascular Disease
DX: Z01.810 Encounter for preprocedural cardiovascular examination (principal); E78.00 Pure hypercholesterolemia, unspecified; R94.31 Abnormal electrocardiogram [ECG] [EKG]; I10 Essential (primary) hypertension; Z82.49 Family history of ischemic heart disease and other diseases of the circulatory system
CPT/HCPCS: 78452; A9500; J0153; 93017